=== PATIENT | male | born 1945 | race Caucasian/White ===

== ENCOUNTER 2022-03-21 08:32 | Observation (INO) ==
--- NOTE | 2022-03-09 10:44 | PAT Medication Instructions ---
Medication Instructions Date of Service March 09, 2022 Home Medications escitalopram oxalate 10 mg tablet (Lexapro) 15 mg PO HS rosuvastatin 10 mg tablet (Crestor) 10 mg PO HS Take evening before surgery escitalopram oxalate 10 mg tablet (Lexapro) 15 mg PO HS rosuvastatin 10 mg tablet (Crestor) 10 mg PO HS Other Notes If you have any questions please call us at [phone] or [phone] or [phone] or [phone]
--- NOTE | 2022-03-14 13:43 | Anesthesiology Consultation ---
Date of Service March 14, 2022 Assessment & Plan (1) Encounter for pre-operative examination: Chart Review Chart Review: Acceptable Risk for Surgery and Patient seen in Pre Admission Testing - Pt is NOT an Outpatient Joint candidate Per PAT appt on 03/14/22, patient denies any recent travel or large group activities. Pt is vaccinated for Covid. Will leave to surgeon's discretion if preop Covid testing needed. Educated on importance of using Covid precautions one week prior to surgery Excision right upper back lipoma 06/01/20= Done under [facility] with Grade 1 view with MAC #3. ETT #7.5. (Had scopolamine patch placed) History Surgery Operation Date: 03/21/22 10:40 Proposed Procedures p Left Revision Total Knee Arthroplasty - Boubacar Gaona MD Height/Weight Height: 6 ft 3 in Weight: 123.8 kg Allergies Allergy/AdvReac Type Severity Reaction Status Date / Time No Known Allergies Allergy Mild Verified 03/08/22 14:28 Medications Home Medications Medication Instructions Recorded Confirmed Last Taken escitalopram oxalate 10 mg tablet 15 mg PO HS 03/17/20 03/08/22 06/04/20 (Lexapro) rosuvastatin 10 mg tablet (Crestor) 10 mg PO HS 03/08/22 03/08/22 Unknown Past Medical History Medical History Anxiety COVID-19 virus detected 2020>RESOLVED Hearing deficit Wears hearing aids bilaterally History of basal cell carcinoma S/p excision History of kidney stones No recent issues History of prostate cancer diagnosed 01/2019--s/p prostatectomy History of squamous cell carcinoma S/p excision History of traumatic subdural hematoma (~07/2008) D/t a fall off a ladder--had craniotomy Exercise / Class Metabolic Activity II 4-5 Yardwork/Stairs/Walk up hill (one flight of stairs - no chest pain or SOB ) Past Family History Family History Mother Family hx of colon cancer Colorectal cancer Myocardial infarction Hypertension Grandmother (Maternal) Cancer Father Myocardial infarction Sister Myocardial infarction Grandfather (Paternal) Myocardial infarction Grandmother (Paternal) Myocardial infarction Other Heart disease No family history of adverse response to anesthesia Past Surgical History Surgical History (Updated 03/14/22 @ 16:15 by Anneliese Werner PA-C) H/O melanoma excision Melanoma Left Posterior Neck (Pt denies hx of melanoma- just BCC and SCC) History of appendectomy History of arthroscopy of left knee History of bilateral knee replacement History of colonoscopy with polypectomy History of craniotomy (~09/22/08) @ [facility] right frontoparietal craniotomy, evacuation of chronic subdural hematoma--d/t a fall 07/2008 History of lithotripsy History of prostate biopsy malignant History of prostatectomy 01/2019 History of tooth extraction History of total left knee replacement (TKR) History of total right knee replacement (TKR) Hx of vasectomy Lipoma of back REMOVED Nausea and vomiting after administration of anesthetic agent Past Anesthesia History No Hx of Anesthesia Complications (with exception to PONV with craniotomy - no issues with subsequent surgeries or sedation ) and No Family Hx of Anesthesia Complications History of PONV No Hx of Motion Sickness and History of PONV (one episode with craniotomy ) Social History Smoking Status: Never smoker Do You Dip or Chew Tobacco: No Hx Alcohol Use: Yes Alcohol type: beer alcohol intake frequency: 0-2 drinks per day (1 beer day ) substance use type: does not use Review of Systems Rare reflux Snoring- no witnessed apnea - no hx of sleep study Patient denies chest pain, shortness of breath, dyspnea on exertion, cough, wheezing, palpitations. No hx of seizures, stroke, AR. No hx of blood clots or blood transfusions Physical Exam Vital Signs VITALS BP 125/72 P 66 TEMP 98.4 SP02 98% RESP 16 Constitutional no acute distress ENMT Mouth: no TMJ clicking Thyromental Distance: > or= 3.5 Finger Breadths (3.5) Mallampati Class: II Mouth / Teeth: 1. Missing 2. Missing Partial lower denture Neck neck extension not limited Respiratory normal respiratory effort; no respiratory distress Auscultation: lungs clear to auscultation bilaterally; no wheezes Cardiovascular Rate/Rhythm: regular rate and regular rhythm Heart Sounds: no murmur Vessels: no carotid bruit Musculoskeletal Spine: no pain with cervical ROM Extremities: extremities normal to inspection Psychiatric Orientation: alert Lab Results Anesthesia Preop Results Results Anesthesia Widget: WBC 7.14 K/ul (4.8-10.8) 03/14/22 Hgb 12.5 g/dl (14.0-18.0) L 03/14/22 Hct 36.7 % (40.1-51.0) L 03/14/22 Plt 204 K/uL (130-400) 03/14/22 Na 138 mmol/L (136-145) 03/14/22 K 3.8 mmol/L (3.5-5.1) 03/14/22 Cl 105 mmol/L (98-107) 03/14/22 CO2 26 mmol/L (21-32) 03/14/22 BUN 19 mg/dl (6-23) 03/14/22 Creat 0.83 mg/dl (0.6-1.4) 03/14/22 Glucose Level 108 mg/dl (70-99(Fasting)) H 03/14/22 PT 11.6 Seconds (9.0-12.0) 03/14/22 PTT 27.4 Seconds (21.0-31.0) 03/14/22 INR 1.1 (0.9-1.1) 03/14/22 Blood Type AB Positive 03/14/22 Antibody Screen NEGATIVE 03/14/22 Testing Electrocardiogram Date: 03/14/22 Findings: + NSR @ (60bpm ) Normal EKG per cardio Chest X-Ray Date: 03/14/22 Findings: + NAD FINDINGS: Cardiomediastinal and hilar silhouettes are within normal limits. Mild hyperinflation with diaphragmatic flattening. No pneumothorax, pleural effusion, airspace consolidation or overt pulmonary edema. Degenerative changes of the shoulders and spine. COVID-19 Risk Screen Screening Information COVID-19 Screen Date: 03/14/22 Exposure 21 Days Family/Household +COVID Last 21 Days: No Exposure 10 Days Any COVID Exposure Last 10 Days: No Symptoms Last 10 Days Experienced COVID Sx Last 10 Days: No + COVID 0-90 Days COVID + in Last 0-90 Days: No Risk Plan COVID Risk Plan: No Risk Identified Patient Education COVID Preop Screening Education Complete: Yes
--- NOTE | 2022-03-18 23:54 | History and Physical Report ---
DATE OF ADMISSION: 03/21/2022. CHIEF COMPLAINT: Persistent left knee pain, discomfort, and swelling after a total knee replacement done 10 years ago. 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 He has got a long hi story of knee problems and arthritis and had his left knee replacement by myself back on 02/09/2012. He did pretty well from this, but about a year after surgery, he started having some intermittent sw elling of his knee. We have aspirated his knee on multiple occasions and sent it off and it always s howed an elevated white blood cell count. Unfortunately, it is growing out multiple different bacter ia on several occasions. Back in 01/2013, it grew out some Corynebacterium and Bifidobacterium speci es. We then later had an aspirate, which grew out coag-negative staph and a third aspirate grew out Clostridium. He had a fourth aspirate in 2014, which grew out group beta strep. Despite this, his initial sed rates were all pretty normal, but they have climbed up over time. We actually sent him to [place] to [facility] for evaluation and definitive treatment due to this confusin g picture. He was initially thought to have infection down there as well, but after extensive workup , they deemed he was not infected, went ahead and replaced his right knee. His right knee has done w ell. He is continued to have persistent pain and discomfort in his left knee, which tends to wax and wane. He enjoys playing golf and doing other things and having more difficulty doing this and feels like things have gotten worse. He is looking to have something done. No fevers, just pain and swel ling. PAST MEDICAL HISTORY: Significant for: 1. Prostate cancer, status post surgical treatment. 2. Squamous cell skin cancer. 3. Subdural hematoma. 4. Kidney stones. 5. Basal cell skin cancer. 6. Auditory difficulties. 7. Anxiety. PAST SURGICAL HISTORY: Includes: 1. Left knee arthroscopy. 2. Left knee replacement done on 02/09/2012. 3. Right knee replacement at [facility] in 2016. 4. Colonoscopy. 5. Craniotomy. 6. Lithotripsy. 7. Prior prostate biopsy. 8. Prostatectomy. 9. Oral surgery. 10. Vasectomy. 11. Appendectomy. ALLERGIES: None. CURRENT MEDICATIONS: Include: 1. Lexapro. 2. Multivitamin. SOCIAL HISTORY: A 77-year-old male. He is . 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 [facility] [place] He is retired. One drink per day. Does not smoke. FAMILY HISTORY: No heart disease. REVIEW OF SYSTEMS: Negative for diabetes, neurologic problem, vascular problem, or bleeding disorder s. No history of chest pain. No history of DVT or PE. PHYSICAL EXAMINATION: GENERAL: Reveals a healthy, pleasant middle-aged male. HEENT: Benign. NECK: Supple. No lymphadenopathy. LUNGS: Clear to auscultation. HEART: Regular rate and rhythm. ABDOMEN: Soft, nontender, nondistended. EXTREMITIES: Grossly neurovascularly intact except as follows: Examination of the left knee reveals the patient walks independently. I do not detect any major limp. He does have moderate-sized knee effusion. His range of motion is 0 to 120. There is a little varus valgus laxity. Good straight le g raise. Examination of the right knee reveals a well-healed incision. No swelling. Range of motion is 0 to 120. No instability. X-RAYS: X-rays of the left knee are reviewed. It shows cemented posterior stabilized total knee art hroplasty. There is some lucency around the tibial tray suggestive of loosening. Femoral component l ooks to have a little lucency underneath as well. Bone scan: We did get a bone scan done on 02/24/2022. It showed slight increase intake consistent w ith some synovitis. Possible loosening. LABS: We did get a sed rate of 26 and CRP, just very mildly elevated at 0.98. Most recent knee aspirate revealed 17,000 white cells with 81% polys. They did grow out Propionibact erium acnes at this time. 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 He had an extensive workup both here and at [facility]. Initial thoughts were infection, but they became less con vinced to this. I still think he has got probably some low level infection in there. This is all ba sed on his knee aspirate results primarily and his clinical symptoms and the radiographic findings. PLAN: We talked about treatment options including revision arthroplasty. In his case, it would eith er be a 2 stage or 1 stage exchange. We talked about both these options and obviously, he is not too keen on the 2-stage exchange option. With his low level bacteria, it is a bit difficult, but we do need to treat him with broad-spectrum antibiotics. After extensive discussion, we are going to likel y proceed with a 1 single stage exchange. We will put antibiotics in the cement and probably treat h im for at least 6 months of oral antibiotics postop. If we get in, there is two extensive infection, I will do an antibiotic spacer and then come back and revise his knee at a later date. The risks an d benefits of this procedure were explained to the patient include, but not limited to DVT, PE, , infection, neurological injury, vascular injury and persistent infection. The patient understands and desires to proceed. Informed consent was obtained. As far as discharge plans, he is planning to be discharged to home. We will keep him on broad-spectr um antibiotics, probably some cefadroxil for extended period of time postop. We will use aspirin for DVT prophylaxis. Job ID: [id number]
[~2022-03-21 08:32] MED LIST: ACETAMINOPHEN 500 MG TAB PO SCH; BUPIVACAINE 0.5 % 5 MG/1 ML PF 10ML VIAL ONE; BUPIVACAINE LIPOSOME/PF 266 MG, BUPIVACAINE/EPINEPHRINE 50 ML, SODIUM CHLORIDE 0.9% 30 ... INFIL SCH; CeleBREX 200 MG CAP PO SCH; DAKIN'S SOLN 0.5% FULL STRENGTH 473ML BTL EXT STA; EPINEPHrine INJ 1 MG/ML AMP ONE; FAMOTIDINE 20 MG TAB PO SCH; LR 500ML BOLUS, THEN 15ML/HR IV SCH; LR 60ML/HR IV SCH; METOCLOPRAMIDE HCL 10 MG TABLET PO SCH; ROPIVACAINE 0.5% 5 MG/ML 30 ML VIAL ONE; TRANEXAMIC ACID 1,000 MG **IV Intra-op IV SCH
--- NOTE | 2022-03-21 08:54 | History & Physical Bridge Note ---
Date of Service March 21, 2022 History & Physical Bridge Note I have examined the patient, reviewed the History & Physical and in the interval since the performance of the History & Physical I have noted the following changes of clinical significance: no changes noted
[2022-03-21] MEDS ORDERED: HYDROmorphone INJ 1 MG/ML SYRINGE IV PRN (09:23)
[2022-03-21] MEDS ORDERED: ePHEDrine sulfate 50 MG/ML AMP IV PRN (09:23)
[2022-03-21] MEDS ORDERED: ONDANSETRON INJ 2 MG/ML 2 ML VIAL IV PRN (09:23)
[2022-03-21] MEDS ORDERED: PHENYLEPHRINE 100MCG/ML 5ML SYR IV PRN (09:23)
[2022-03-21] MEDS ORDERED: fentaNYL citrate 100 MCG/2 ML VIAL IV PRN (09:23)
[2022-03-21] MEDS ORDERED: ATROPINE SULFATE 0.1 MG/ML 10ML SYR IV PRN (09:23)
[2022-03-21] MEDS ORDERED: LABETALOL HCL IV 5 MG/ML 20ML IV PRN (09:23)
[2022-03-21] MEDS ORDERED: LIDOCAINE 2% MPF LOCAL 5 ML VIAL INFIL ONE (10:09)
[2022-03-21] MEDS ORDERED: MIDAZOLAM HCL 1 MG/ML 2ML VIAL ONE (10:09)
[2022-03-21] MEDS ORDERED: PROPOFOL IV EMULSION 10 MG/ML 20 ML VIAL IV ONE ×9 (10:09→15:53)
[2022-03-21] MEDS ORDERED: ePHEDrine sulfate 50 MG/ML AMP ONE ×2 (10:14→14:27)
[2022-03-21] MEDS ORDERED: SODIUM CHLORIDE 0.9% INJ 10 ML VIAL ONE (11:11)
[2022-03-21] MEDS ORDERED: VANCOMYCIN HCL 1000MG/20ML VIAL ONE ×2 (11:12→15:31)
[2022-03-21] MEDS ORDERED: TOBRAMYCIN SULF 40 MG/ML 2 ML VIAL ONE (11:12)
[2022-03-21] MEDS ORDERED: BUPIVACAINE/EPINEPHRINE 0.25% 1:200,000 30 ML VIAL ONE (11:12)
[2022-03-21] MEDS ORDERED: SODIUM CHLORIDE 0.9% PF 50 ML VIAL ONE (11:13)
[2022-03-21] MEDS ORDERED: BUPIVACAINE LIPOSOME 1.3% 266 MG/20 ML VIAL ONE (11:13)
[2022-03-21] MEDS ORDERED: TOBRAMYCIN SULFATE VIAL ONE (11:42)
[2022-03-21] MEDS ORDERED: VANCOMYCIN HCL 1 GM/270 ML BAG IV ONE (12:18)
[2022-03-21] MEDS ORDERED: ONDANSETRON INJ 2 MG/ML 2 ML VIAL ONE (13:46)
[2022-03-21] MEDS ORDERED: PHENYLEPHRINE HCL 10 MG/ML VIAL ONE (14:31)
[2022-03-21] MEDS ORDERED: ALBUMIN HUMAN 5% 12.5 GM/250 ML VIAL IV ONE (15:12)
[2022-03-21] MEDS ORDERED: SODIUM CHLORIDE 0.9% 250 ML IV PRN ×2 (15:51→18:25)
[2022-03-21 16:31] LABS: Hematocrit (blood only) 30.8 % (40.1-51.0); Hemoglobin 9.9 g/dl (14.0-18.0)
[2022-03-21] MEDS ORDERED: VANCOMYCIN CONSULT ACTIVE PRN (16:37)
--- NOTE | 2022-03-21 16:39 | Operative Report ---
PG Post Operative Report Pre & Post Diagnosis Operation Date: 03/21/22 10:40 Pre-Op Diagnosis: Painful Left Total Knee Replacement with possible infection versus aseptic Loosening Post-Op Diagnosis: Painful Left Total Knee Replacement with possible infection versus aseptic loosening I identified the patient and participated in the time-out.: Yes Procedure Operation Date: 03/21/22 10:40 Actual Procedures p Left Total Knee Arthroplasty Revision(Left) - Boubacar Gaona MD Surgeon Boubacar Gaona MD [employer] Guero Bermudez PA-C Estimated Blood Loss 1,000 Findings Consistent with Post-Op Diagnosis Operative findings revealed a moderate sized serous effusion. It was not bloody. He did have a moderate amount of osteolysis particular around the tibial tray. None of the components were loose grossly. Moderate synovitis.. Fluids 2200 cc of crystalloid with a 500 cc of colloid Specimens 2 tissue specimen sent for tissue culture. Fluid sent for fluid culture 1 from the knee joint fluid and 2 from the each of the canal was 1 the femoral canal on the tibial canal Frozen section sent for polys per high-power field which revealed the 1 small area of more than 10 polys per high-power field with the remaining less than 5. Drains None Complications none Disposition Accompanied Patient To Recovery: No Indications Patient 77-year-old male retired [employer] (who is now 10 years out from a left knee replacement. He did well for the first year and then the was kind of unhappy with it ever since then feels that intermittent swelling was sent off multiple times for evaluation and analysis for infection. All results were equivocal throughout. I sent him to [place] to have this evaluated for second opinion by the infectious a specialist there. They could not figure it out either. They initially thought it was infected but then later thought not so. They he went ahead and had his right knee replaced down there. He is done well from that. He continues bothered by left knee pain which tended to wax and wane. Moved back to this area and is now elected to proceed with surgical treatment as it bothers him sometimes where he has trouble getting around. Another infectious work-up which was done which was equivocal. Treatment options were explained to the patient. We talked about revision knee replacement versus 1 stage exchange versus two-stage exchange. After extensive discussion we elected proceed with a 1 stage exchange procedure. Description of Procedure Operative implants consist of: 1. Biomet Vanguard size 75 left posterior stabilized femoral component with 5 mm distal medial and distal lateral augments, 5 mm offset stem and a 19 x 80 mm stem. 2. Biomet Vanguard III 60 size 79 tibial tray with a 17 x 80 mm stem with a 2.5 mm offset and a small cruciate wing. 3. 22 mm fully constrained polyethylene insert. The patient was taken the operating, identified, placed on the operating table supine position protectors were properly padded. IV antibiotics tried by anesthesia team The patient did receive 3 g of Ancef preoperatively. A Alvarez catheter was placed in sterile fashion. A spinal anesthetic was implemented holding area. A left thigh tent was then placed in the left lower extremities and prepped and draped in usual sterile fashion. The left leg was elevated exsanguinated with use of an Esmarch in terms playset 3 mmHg. An anterior approach left knee was then performed to longitudinal incision using the previous incision and extending it approximately about 2 cm and distally about a centimeter. Sharp dissection was carried through subcutaneous tissue down the extensor mechanism. A medial parapatellar arthr otomy incision was made. Some fluid was sent off for stat gram stain aerobic anaerobic culture. Gram stains stain showed no organisms. Complete synovectomy of the suprapatellar pouch and medial lateral gutters was then performed. The synovium was sent off for frozen section. For the most part it revealed less than 5 polys per high-power field but there was 1 area where they felt there was more than 10 polys per high-power field. Down otherwise it looked pretty benign. In light of these findings we elected proceed with a 1 stage exchange. That was the plan for initially even with knowledge of possible infection. The polyethylene was removed. I used an ACL saw to loosen up the tibial tray. I was able to remove this after considerable work but it was not loose. We were able to break it free from the underlying cement mantle. We then very carefully debrided the cement. We did a meticulous dissection to get rid of all cement and all foreign debris. Attention drawn the femur. I did place a gauze in the tibial canal to prevent material from going into the tibia. Using the ACL saw the osteotome technique the femoral component was removed. Once again it was not grossly loose. We then proceeded with the tibial preparation. We did get cultures of both the IM canals of the tibia and femur and sent those off for analysis as well. We then reamed the tibia up to a size 80. The intramedullary guide was placed. I then took a pretty generous cut in order to get rid of all cement from the tibia and all possible contaminated debris. Do we then sized the tibia to a size 79. Was prepared for a 2.5 mm offset stem and this implant was assembled and placed. It fit very nicely. Attention drawn the femur. The distal femur was then once again reamed and we did get obtain the cultures. We reamed up to a size 19. The distal femoral cut was made to take an additional couple millimeters off the distal femur. We sized to a size 75. We are concerned about mid flexion instability before so we did not want to use a smaller implant. The AP cutting guide was placed in the anterior cut, anterior chamfer, posterior cut, posterior chamfer cuts were made. The femoral component was assembled and placed. The box cut was cut. The trial implant was assembled in place and fit quite nicely. We then trialed the knee and the extension gap was bigger than the flexion gap so we did place 5 mm augments distally on the femur both medially and laterally. This would seem to balance the knee. It did take a 22 mm insert and I did elect to use a constrained implant. Once this was complete the tourniquet was let down. We spent quite a bit of time meticulously debriding the IM canals. We did ream the IM canals of both the tibia and the femur and then I used a brush to clean the IM canals. We then irrigated it extensively with 3 L of pulsatile lavage solution. I then irrigated the knee with full-strength Dakin's solution and let it sit in the wound for 3 minutes a nd then irrigated this out with another liter and half of fluid. I then irrigated the knee with hydrogen peroxide. We let this sit for 3 minutes and then irrigated this out with a liter and half of a normal saline. I then did a Betadine wash and let the sit in the knee for 5 minutes. We then irrigated this out. Once this was complete and meticulous debridement was performed we took some Hibiclens soaked gauze sponges and placed them in the wound. I then closed the skin with a running Prolene suture. All drapes were then taken down. The wound was Sterile. We then reprepped the leg and redraped it and do not use all new instruments. Attention then turned to placing the implants. The left leg was elevated exsanguinated with use of an Esmarch. The tourniquet was set at at 300 mmHg. The sutures were removed. I open the wound up again. I then irrigated extensively with pulsatile lavage solution. We then did another Betadine wash and left it sit in the knee for 5 minutes. We irrigated this out. A triple batch of Palacos G cement was then mixed with the 3 additional grams of vancomycin. I then placed the femoral component cementing the metaphysis. I placed the tibial component cementing the metaphysis. A trial insert was placed the knee was reduced and held in extension until the cement hardened. I that I did inject locally with 100 cc of combination of 20 cc of Exparel, 30 cc normal saline, 50 cc of quarter percent Marcaine with epinephrine. Of note, before placing the implants in the canals I did place some antibiotic powder in each of the tibial and the femoral canals. We used a total of 1 g of vancomycin and 1.2 g of tobramycin with half of it in each canal. Once the cement hardened the polyethylene was removed and that tourniquet was let down. Oh there was quite a bit of bleeding initially it when the canals were open but much less now that the canals were filled. We did not see any large bleeding of vessels at all but that there was quite a bit of oozing throughout. I then placed the a permanent 22 mm posterior stabilized insert with increased constraint. The knee was taken through range of motion the patella tracked nicely with no thumbs test. It appeared balanced in flexion extension. We irrigated the wound again. I then placed an additional gram of vancomycin in the wound. The extensor mechanism then closed with combination 1 PDS suture #1 Vicryl suture in a [id number] fashion. Extensor mechanism checked found to be intact the subcutaneous tissue then closed with 2 Dexon suture in buried fashion skin was closed skin trina. Leg was then cleaned and dried a sterile dressing was Xeroform, 4 x 4's, sterile cast padding, Alcon bandage were applied. The patient was then transferred to the recovery room in stable condition. Patient tolerated procedure well no complications. All needle sponge counts were correct at the end the operation. Guero Bermudez, my physician perioperative assistant, was present for the entire procedure. His assistance was essential and required for appropriate patient positioning, prepping and draping, surgical exposure, performing the technical details of the operation, placement the implants, closure of the wound, and placement of the sterile bandage. I attest to the content of the Intraoperative Record and any orders documented therein. Any exceptions are noted below.
--- NOTE | 2022-03-21 17:15 | XRay Report ---
XR knee LT 1 or 2V routine CLINICAL HISTORY: Surgical Post Op TECHNIQUE: 2 views of the left knee were obtained. Comparison: Comparison is made to left knee radiographs 02/09/2012 FINDINGS: Postoperative changes are seen of revision of total knee arthroplasty. Surgical trina, subcutaneous emphysema, and soft tissue swelling are seen. No evidence of fracture. IMPRESSION: Expected postoperative appearance status post revision of total knee arthroplasty. ACT 112: Negative or not required by law. Electronically signed by: Trevor Calhoun M.D. 03/21/2022 5:13 PM
[2022-03-21] MEDS ORDERED: ACETAMINOPHEN 1,000 MG/100 ML VIAL IV STA (18:25)
[2022-03-21] MEDS ORDERED: ACETAMINOPHEN 1000 MG/100 ML IV IV ONE (18:32)
--- NOTE | 2022-03-21 18:45 | Anesthesiology Progress Note ---
Date of Service March 21, 2022 Anesthesia Post Procedure Vital Signs Vital Signs: Temp Pulse Pulse Resp BP Pulse Ox O2 Del Method 03/21/22 18:20 81 12 82/59 L 100 Room Air 03/21/22 18:00 79 14 83/53 L 100 Room Air 03/21/22 17:55 76 14 85/55 L 99 Room Air 03/21/22 17:50 83 17 75/54 L 100 Room Air 03/21/22 18:10 79 21 85/56 L 100 Room Air 03/21/22 17:45 76 13 83/61 L 99 Room Air 03/21/22 17:40 79 14 89/64 L 99 Room Air 03/21/22 17:35 79 16 78/55 L 100 Room Air 03/21/22 17:30 84 22 79/55 L 98 Room Air 03/21/22 17:25 83/55 L 03/21/22 17:20 80 15 79/53 L 99 Room Air 03/21/22 17:15 80 16 83/55 L 97 Room Air 03/21/22 17:10 36.4 C L 82 19 79/51 L 100 Room Air 03/21/22 17:05 78 18 81/57 L 100 Nasal Cannula 03/21/22 17:00 80 14 85/58 L 100 Nasal Cannula 03/21/22 16:55 79 18 71/43 L 100 Nasal Cannula 03/21/22 16:50 77 18 83/61 L 100 Oxymask 03/21/22 16:40 86 16 77/50 L 100 Oxymask 03/21/22 16:33 36.3 C L 85 21 85/52 L 100 Oxymask 03/21/22 09:00 36.7 C 59 L 20 122/77 97 Room Air O2 Flow Rate 03/21/22 18:20 03/21/22 18:00 03/21/22 17:55 03/21/22 17:50 03/21/22 18:10 03/21/22 17:45 03/21/22 17:40 03/21/22 17:35 03/21/22 17:30 03/21/22 17:25 03/21/22 17:20 03/21/22 17:15 03/21/22 17:10 03/21/22 17:05 2 03/21/22 17:00 2 03/21/22 16:55 2 03/21/22 16:50 10 03/21/22 16:40 10 03/21/22 16:33 10 03/21/22 09:00 Transfer of Care Handoff Completed per policy Notes Mental Status: alert / awake / arousable Patient Amnestic to Procedure: Yes Nausea / Vomiting: adequately controlled Pain: adequately controlled Airway Patency, RR, SpO2: stable & adequate BP & HR: stable & adequate Hydration State: stable & adequate Neuraxial Anesthesia: was administered and sensory block is resolving Anesthetic Complications: no major complications apparent Notes: blood pressure on low side but stable with mean in low 60's - will give 1 unit prbc's and send to pcu for closer monitoring.
[2022-03-21 18:46] LABS: Basophils # (auto) 0.06 K/uL (0-0.2); Basophils % (auto) 0.4 %; Eosinophils # (auto) 0.03 K/uL (0-0.50); Eosinophils % (auto) 0.2 %; Hematocrit (blood only) 26.9 % (40.1-51.0); Hemoglobin 8.9 g/dl (14.0-18.0); Immature Granulocytes # (auto) 0.08 K/uL (0.00-0.02); Immature Granulocytes % (auto) 0.5 %; Lymphocytes % (auto) 4.3 %; Mean Corpuscular Hgb Conc 33.1 g/dL (32.0-36.0); Mean Corpuscular Volume 93.7 fL (80.0-100.0); Mean Platelet Volume 8.8 fL (9.4-12.4); Monocytes # (auto) 0.78 K/uL (0.24-0.82); Monocytes % (auto) 4.8 %; Neutrophils # (auto) 14.61 K/uL (1.4-6.5); Neutrophils % (auto) 89.8 %; Platelet Count 167 K/uL (130-400); RDW Coefficient of Variation 13.2 % (11.5-14.5); RDW Standard Deviation 45.9 fL (36.4-46.3); Red Blood Count 2.87 M/uL (4.63-6.08); White Blood Count 16.26 K/ul (4.8-10.8)
--- NOTE | 2022-03-21 18:46 | Hospitalist Consultation ---
Date of Consultation March 21, 2022 Assessment & Plan (1) Postoperative hypotension: Neymar is a 77-year-old male with a past medical history of osteoarthritis, right TKA, left TKA, craniotomy for subdural hematoma without residual neurologic deficit, lipoma excision who presented for scheduled left TKA revision. He experienced interoperative and postoperative hypotension, medicine has been consulted for postoperative management of hypertension. On review patient had 1 L of blood loss, has received 3 L of LR, and had a H&H decreased from 12.5 preop to 9.9. Maps generally ranging 5565. Was transiently on Benjamin-Synephrine intraoperatively. Patient received TXA. Postoperative hypotension Suspect hypovolemicw/ blood/colloid loss - s/p TXA Presented for scheduled left TKA revision Preoperative hemoglobin 12.5, postop check 9.9 Patient with 1 L reported blood loss intraoperatively At time of assessment had received 3 L LR 1 unit of blood ordered for transfusion. 1 unit on hold MAP 65 on assessment. Goal MAP greater >= 65 Left lower extremity neurovascularly intact on assessment; radial pulse intact, warm and well-perfused, cap refill less than 2 seconds, able to wiggle toes Patient without chest pain, chest pressure, shortness of breath, lightheadedness, dizziness Repeat EKG obtained. Sinus rhythm, QTC 446, no territorial ST segment changes. 1x PVC, low amplitute t waves similar to prior. No prior cardiac disease, no history of [place]/CAD. No chest pain on assessment. Tylenol x1 ordered for pretransfusion LR continued 80 cc/h Updated CBC, lactate, Trope, CMP pending - Cr pending, preop Cr 0.83 Anxiety/depression May resume Lexapro tomorrow Hyperlipidemia May resume Crestor tomorrow DVT prophylaxis: Per primary team. Pharmacal prophylaxis deferred in the immediate postoperative setting and with anemia CODE STATUS: Full code Disposition: Transferred to PCU. ICU aware, if not improving following blood transfusion may require admission for pressors (2) Prostate cancer: (3) History of bilateral knee replacement: (4) Lipoma of back: (5) Anxiety: History of Present Illness Attending Physician: Boubacar Gaona MD History of Present Illness Neymar is a 77-year-old male with a past medical history of osteoarthritis, right TKA, left TKA, craniotomy for subdural hematoma without residual neurologic deficit, lipoma excision who presented for scheduled left TKA revision. He experienced interoperative and postoperative hypotension, medicine has been consulted for postoperative management of hypertension. On review patient had 1 L of blood loss, has received 3 L of LR, and had a H&H decreased from 12.5 preop to 9.9. Maps generally ranging 5565. Was transiently on Benjamin-Synephrine intraoperatively. Patient received TXA. He is not on any aspirin, or aspirin like medications and does not take any anticoagulants. Other than his subdural hematoma he reports he has not had any problems with bleeding including no sebleeds or prolonged wound healing in the past. He reported he has tolerated a right total knee, left total knee 11 years ago, and prostate removal without any complications of anesthesia or hypotension. He reports his blood pressure does tend to run in the low 1 teens to low 100s at baseline. At time of bedside visit he does not feel lightheaded or dizzy, has no chest pain, chest pressure, shortness of breath, difficulty breathing, nausea, vomiting. Sensation is intact in his toes bilaterally and he is able to wiggle his feet. He is not have any numbness/tingling. He denies pain in the left knee. He reports his only medications are rosuvastatin and Lexapro. Patient is listed as taking aspirin twice daily on [employer] [facility], patient reports he does not take aspirin. Reports he has 1 beer daily, never more than 1 beer and does not drink or liquor. No tobacco use. No recreational substance use including marijuana. Full code. Allergies Allergy/AdvReac Type Severity Reaction Status Date / Time No Known Allergies Allergy Mild Verified 03/21/22 08:46 Home Medications Medication Instructions Recorded Confirmed Type escitalopram oxalate 10 mg tablet 15 mg PO HS 03/17/20 03/21/22 History (Lexapro) rosuvastatin 10 mg tablet (Crestor) 10 mg PO HS 03/08/22 03/21/22 History acetaminophen 500 mg capsule 1,000 mg PO TID Pain 30 days #180 03/19/22 03/21/22 Rx caps aspirin 81 mg tablet,delayed 81 mg PO BID 45 days #90 tabs 03/19/22 03/21/22 Rx release (Phuc Low Dose Aspirin) ketorolac 10 mg tablet 10 mg PO Q6 Pain 5 days #20 tabs 03/19/22 03/21/22 Rx ondansetron HCl 4 mg tablet 4 mg PO Q6 PRN nausea #20 tabs 03/19/22 03/21/22 Rx oxycodone 5 mg tablet 5 - 10 mg PO Q6 PRN pain #40 tabs 03/19/22 03/21/22 Rx sennosides 8.6 mg-docusate sodium 1 tab-cap PO BID 14 days #28 tabs 03/19/22 03/21/22 Rx 50 mg tablet (Senokot-S) Patient History Medical History (Updated 03/21/22 @ 18:38 by Aaron Carranza MD) Anemia Anxiety COVID-19 virus detected 2020>RESOLVED Hearing deficit Wears hearing aids bilaterally History of basal cell carcinoma S/p excision History of kidney stones No recent issues History of prostate cancer diagnosed 01/2019--s/p prostatectomy History of squamous cell carcinoma S/p excision History of traumatic subdural hematoma (~07/2008) D/t a fall off a ladder--had craniotomy Obesity Surgical History H/O melanoma excision Melanoma Left Posterior Neck (Pt denies hx of melanoma- just BCC and SCC) History of appendectomy History of arthroscopy of left knee History of bilateral knee replacement History of colonoscopy with polypectomy History of craniotomy (~09/22/08) @ [facility] right frontoparietal craniotomy, evacuation of chronic subdural hematoma--d/t a fall 07/2008 History of lithotripsy History of prostate biopsy malignant History of prostatectomy 01/2019 History of tooth extraction History of total left knee replacement (TKR) History of total right knee replacement (TKR) Hx of vasectomy Lipoma of back REMOVED Nausea and vomiting after administration of anesthetic agent Family History Mother Family hx of colon cancer Colorectal cancer Myocardial infarction Hypertension Grandmother (Maternal) Cancer Father Myocardial infarction Sister Myocardial infarction Grandfather (Paternal) Myocardial infarction Grandmother (Paternal) Myocardial infarction Other Heart disease No family history of adverse response to anesthesia Social History Smoking Status: Never smoker Second Hand Exposure: Yes (parents smoked); Do You Dip or Chew Tobacco: No; Hx Alcohol Use: Yes Alcohol type: beer Alcohol Intake Frequency: 2-3 x/Week Preferred Language: Thai Communication Ability: Effective General Assistant Required: No Beliefs That Will Affect Care: None Current Living Situation: Spouse Feels Safe at Home: Yes Safety Concerns: Feels Safe At This Time Sunscreen Use: Yes Assistive Devices: Denture - Lower, Glasses and Hearing Aid - Bilateral Review of Systems Review of Systems: All systems reviewed & are unremarkable except as noted in HPI & below Physical Exam Physical Exam: General: A&Ox3. NAD. Cooperative. HEENT: Atraumatic, normocephalic. Vision/hearing grossly intact Pulm: Symmetrical chest rise. No increased work of breathing. No respiratory distress. Cardiac: RRR Radial pulses intact and symmetrical. Abdominal: NT, ND Sensation is intact in his toes bilaterally and he is able to wiggle his feet. He is not have any numbness/tingling. PT pulse is intact in the left foot. Postoperative dressing and wrap is in place. Moves upper extremities equally with symmetrical boot trimmer strength Results & Data Results & Data ([facility]) Vital Signs (Past 12 Hours) Vital Signs Temp Pulse Pulse Resp BP Pulse Ox O2 Del Method 03/21/22 18:20 81 12 82/59 L 100 Room Air 03/21/22 18:00 79 14 83/53 L 100 Room Air 03/21/22 17:55 76 14 85/55 L 99 Room Air 03/21/22 17:50 83 17 75/54 L 100 Room Air 03/21/22 18:10 79 21 85/56 L 100 Room Air 03/21/22 17:45 76 13 83/61 L 99 Room Air 03/21/22 17:40 79 14 89/64 L 99 Room Air 03/21/22 17:35 79 16 78/55 L 100 Room Air 03/21/22 17:30 84 22 79/55 L 98 Room Air 03/21/22 17:25 83/55 L 03/21/22 17:20 80 15 79/53 L 99 Room Air 03/21/22 17:15 80 16 83/55 L 97 Room Air 03/21/22 17:10 36.4 C L 82 19 79/51 L 100 Room Air 03/21/22 17:05 78 18 81/57 L 100 Nasal Cannula 01/24/23 17:00 80 14 85/58 L 100 Nasal Cannula 03/21/22 16:55 79 18 71/43 L 100 Nasal Cannula 03/21/22 16:50 77 18 83/61 L 100 Oxymask 03/21/22 16:40 86 16 77/50 L 100 Oxymask 03/21/22 16:33 36.3 C L 85 21 85/52 L 100 Oxymask 03/21/22 09:00 36.7 C 59 L 20 122/77 97 Room Air O2 Flow Rate 03/21/22 18:20 03/21/22 18:00 03/21/22 17:55 03/21/22 17:50 03/21/22 18:10 03/21/22 17:45 03/21/22 17:40 03/21/22 17:35 03/21/22 17:30 03/21/22 17:25 03/21/22 17:20 03/21/22 17:15 03/21/22 17:10 03/21/22 17:05 2 03/21/22 17:00 2 03/21/22 16:55 2 03/21/22 16:50 10 03/21/22 16:40 10 03/21/22 16:33 10 03/21/22 09:00 PG Care Time/CCT Total # of Minutes Spent Total Time Spent with Patient: Total time spent is greater than 50% in coordination of care (as documented) at patient's floor/unit and/or counseling patient: Coding Level of Care Code INP/OBS CONSULT LVL 4, 60 MIN Diagnoses Postoperative hypotension I95.81 Prostate cancer C61 History of bilateral knee replacement Z96.653 Lipoma of back D17.1 Anxiety F41.9
[2022-03-21] MEDS ORDERED: STAT IV Infusion **Titration per Protocol STA (19:56)
[2022-03-21] MEDS ORDERED: PHENYLEPHRINE 100MCG/ML 5ML SYR ONE (19:58)
[2022-03-21] MEDS ORDERED: bisacodyL 10 MG SUPP PR PRN (20:11)
[2022-03-21] MEDS ORDERED: NALOXONE HCL 0.4 MG/1 ML VIAL/CARP IV PRN (20:11)
[2022-03-21] MEDS ORDERED: TAMSULOSIN HCL 0.4 MG CAP PO PRN (20:11)
[2022-03-21] MEDS ORDERED: ALUMINUM/MAGNESIUM SUSP 30 ML UDC PO PRN (20:11)
[2022-03-21] MEDS ORDERED: MAGNESIUM HYDROXIDE SUSP 30 ML UDC PO PRN (20:11)
[2022-03-21] MEDS ORDERED: SODIUM CHLORIDE 0.9% 1000ML 1,000 ML IV SCH (20:11)
[2022-03-21] MEDS ORDERED: METOCLOPRAMIDE HCL INJ 5 MG/ML 2 ML VIAL IV PRN (20:11)
[2022-03-21] MEDS ORDERED: HYDROmorphone INJ 0.5 MG/0.5 ML SYR IV PRN (20:11)
[2022-03-21] MEDS: PHENYLEPHRINE HCL 20 MG in DEXTROSE 5% 500 ML IV SCH (20:32)
[2022-03-21 20:33] LABS: Base Excess VBG -4.8 mEq/L; HCO3 VBG 22 mmol/L; Oxygen Saturation VBG < 60.0 %; PCO2 VBG 47 mmHg (38-50); PO2 VBG 21 mmHg; pH VBG 7.28 (7.36-7.41)
--- NOTE | 2022-03-21 20:37 | Critical Care Consultation ---
Date of Consultation March 21, 2022 Assessment & Plan (1) Postoperative hypotension: (2) Anemia: (3) Anxiety: (4) HLD (hyperlipidemia): Plan Reason Critically Ill: 77 YOM POD #0 from left TKA revision secondary to painful joint with possible infection versus aseptic loosening. Patient remained hypotensive in PACU following operative case. EBL 1000ml- resuscitated introperatively with 2liters crystalloid and 500ml of albumin. Required phenylephedrine infusion and ephedrine boluses (50mg) through the case. Patient was initiated with PRBC transfusion by hospitalist service and as he remained hypotension was transferred to ICU. Start patient on Neosynepherine at this time. May require arterial line. Remains on Vancomycin postoperatively- GM stain from case without organisms noted but noted WBC. Neuro: Acute pain postoperative/surigical CAM ICU: NEGATIVE Awake and alert following anesthesia No acute needs Continue with Tylenol, Oxycodone, and Hydromorphone- rescue Narcan is available Cardiac - Hypotension, Shock - Undifferentiated shock at this time noted with hypotension requiring vasopressor support, elevated lactate - DDX: - acute blood loss/hypovolemic, septic, vs. other - he is not hypoxic so doubt obstructive, most likely at this time hypovolemic - Continue with PRBC infusion - NEOsynepherine infusion to keep MAPS >65 - Re-check lactate, CBC, BMP, Ionized CA and random cortisol - Hold toradol - Hold flomax - TXA ordered per primary service Respiratory - NO acute needs GI - No acute needs PPI RENAL/LYTES - electrolyte protocol - check iCA - replete calcium - BPH - Continue with Puckett catheter while on pressors - Hold Flomax until Hypotension resolved ENDO - NO acute needs - hyperglycemic protocol goal <180mg/dl - Random Cortisol pending HEME - Acute on chronic anemia - At this time most consistent with acute blood loss anemia/hypotension - Transfuse - TXA per primary service ID - Patient with history of swelling in the knees with elevated WBC and with and without previous bacteria- Continue with Vancomycin- low threshold to broaden out coverage afebrile- follow lactate, organ dysfunction and pressor requirements wound cultures from today with WBC and no organisms LINES/IV ACCESS - PIV, Puckett Continue use of these lines DVT PROPHYLAXIS -SCDS, ASA 81mg BID DISPO - ICU while on vasopressors I have personally spent 45 minutes of critical care time in the direct management of this patient. This is a life/limb threatening event. This includes time spent evaluating patient, direct bedside care, chart review, placing orders, interpretation of diagnostic studies, discussion with consultants, patient, and family members, as well as other required patient management activities. This time is exclusive of all separately billable procedures, and separate from and in addition to any other critical care service time. Thank you for allowing us to participate in the care of this patient. Please refer to my attending physician's documentation for any further recommendations. History of Present Illness Reason for Consultation: postoperative hypotension Requesting Physician: postoperative hypotension Attending Physician: Boubacar Gaona MD History of Present Illness 77 YOM who is postoperative day #0 from left TKA for osteoarthritis. Medical History of Anxiety, subdural bleed with craniotomy (2008), prostate cancer. He has undergone anesthesia and operations prior to today with no endorsed difficulties. Patient operative report and anesthesia records reviewed. Patient with EBL reported as 1000 ml. Received approx 2000 of crystalloid and 500 ml of colloid in the form of albumin during the case as well as requiring phenylephrine drip and ephedrine boluses (50mg) during the case. Patient remained hypotensive in the PACU and hospitalist was consulted. Patient was administered 1 unit of PRBCs with postoperative HGB 8.9 and lactate 2.3, with remaining hypotension in the 70s/40s. ICU was consulted for hypotension. Patient will be followed in ICU for continued resuscitation, eval for other causes of hypotension and start patient on Neosynpeherine infusion at this time to maintain MAPS >65. He is evaluated in his room in the ICU. Patient is awake, conversant, HR 70-80s with Occasional PVCs, mentating and communicating well. His skin is warm and dry, peripheral pulses are strong. Left leg is wrapped with JEREMIAH wrap, TEDS, and ICE. The leg is soft and peripheral edema noted but leg is warm with palpable pulses as well. Patient is Full CODE COVID test pre-operative is: NEGATIVE Allergies Allergy/AdvReac Type Severity Reaction Status Date / Time No Known Allergies Allergy Mild Verified 03/21/22 08:46 Home Medications Medication Instructions Recorded Confirmed Type escitalopram oxalate 10 mg tablet 15 mg PO HS 03/17/20 03/21/22 History (Lexapro) rosuvastatin 10 mg tablet (Crestor) 10 mg PO HS 03/08/22 03/21/22 History acetaminophen 500 mg capsule 1,000 mg PO TID Pain 30 days #180 03/19/22 03/21/22 Rx caps aspirin 81 mg tablet,delayed 81 mg PO BID 45 days #90 tabs 03/19/22 03/21/22 Rx release (Phuc Low Dose Aspirin) ketorolac 10 mg tablet 10 mg PO Q6 Pain 5 days #20 tabs 03/19/22 03/21/22 Rx ondansetron HCl 4 mg tablet 4 mg PO Q6 PRN nausea #20 tabs 03/19/22 03/21/22 Rx oxycodone 5 mg tablet 5 - 10 mg PO Q6 PRN pain #40 tabs 03/19/22 03/21/22 Rx sennosides 8.6 mg-docusate sodium 1 tab-cap PO BID 14 days #28 tabs 03/19/22 03/21/22 Rx 50 mg tablet (Senokot-S) Patient History Medical History Anemia Anxiety COVID-19 virus detected 2020>RESOLVED Hearing deficit Wears hearing aids bilaterally History of basal cell carcinoma S/p excision History of kidney stones No recent issues History of prostate cancer diagnosed 01/2019--s/p prostatectomy History of squamous cell carcinoma S/p excision History of traumatic subdural hematoma (~07/2008) D/t a fall off a ladder--had craniotomy Obesity Surgical History H/O melanoma excision Melanoma Left Posterior Neck (Pt denies hx of melanoma- just BCC and SCC) History of appendectomy History of arthroscopy of left knee History of bilateral knee replacement History of colonoscopy with polypectomy History of craniotomy (~09/22/08) @ [facility] right frontoparietal craniotomy, evacuation of chronic subdural hematoma--d/t a fall 07/2008 History of lithotripsy History of prostate biopsy malignant History of prostatectomy 01/2019 History of tooth extraction History of total left knee replacement (TKR) History of total right knee replacement (TKR) Hx of vasectomy Lipoma of back REMOVED Nausea and vomiting after administration of anesthetic agent Family History Mother Family hx of colon cancer Colorectal cancer Myocardial infarction Hypertension Grandmother (Maternal) Cancer Father Myocardial infarction Sister Myocardial infarction Grandfather (Paternal) Myocardial infarction Grandmother (Paternal) Myocardial infarction Other Heart disease No family history of adverse response to anesthesia Social History Smoking Status: Never smoker Second Hand Exposure: Yes; Do You Dip or Chew Tobacco: No; Hx Alcohol Use: Yes Alcohol type: beer Alcohol Intake Frequency: 2-3 x/Week Hx Substance Use: No Preferred Language: Romanian 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: No Beliefs That Will Affect Care: None Current Living Situation: Spouse Feels Safe at Home: Yes Safety Concerns: Feels Safe At This Time Sunscreen Use: Yes Assistive Devices: Denture - Lower, Glasses and Hearing Aid - Bilateral Review of Systems Review of Systems: REVIEW OF SYSTEMS: Constitutional: No fever, sweats or chills Eyes: No diplopia, no worsening or blurred vision ENT: normal hearing, no trouble swallowing Respiratory: No cough, sputum, dyspnea at rest or on exertion Cardiovascular: No chest pain, tightness or palpitations Abdomen: No pain, nausea, vomiting, diarrhea or constipation Musculoskeletal: (+) bilateral knee joint pain, lower leg swelling Neurologic: No weakness, numbness/tingling, or balance problems Psychiatric: No anxiety or depression Skin: No rash or itch Physical Exam Physical Exam: PHYSICAL EXAM: General: awake, alert, no apparent distress Head: Normocephalic, atraumatic ENT: PERRLA, EOMI, no pharyngeal exudate, mucous membranes dry Neuro: AAO x 3, speech clear and appropriate, strength intact bilaterally 5/5, sensation intact and equal all extremities and dermatomes, no pronator drift Chest: equal rise and fall of the chest, no accessory muscle use, no heaves or thrills, Clear to auscultation, on room air, Cardiac: Regular rate and rhythm, telemetry reviewed- NSR with PVC, skin warm dry, cap refill <3 seconds, peripheral pulses +2 no JVD, no murmur, +1 bilateral lower extremity edema GI: NABS x 4 quadrants, soft, nontender to palpation, no rebound, guarding or tenderness : voiding into puckett catheter MSK: Left knee wrapped and with ice= leg is soft throughout, no drain, peripher al pulses 2+, sensation improving following local Psych: Normal mood and affect Skin: no rash or erythema Results & Data Results & Data ([facility]) Vital Signs (Past 12 Hours) Vital Signs Temp Pulse Pulse Pulse Resp BP BP 03/21/22 19:44 36.6 C 81 12 83/47 L 03/21/22 19:20 36.3 C L 77 16 84/58 L 03/21/22 19:15 36.3 C L 80 20 84/59 L 03/21/22 19:00 36.5 C 79 13 79/55 L 03/21/22 18:45 36.5 C 76 13 86/69 L 03/21/22 18:50 77 13 86/59 L 03/21/22 18:20 81 12 82/59 L 03/21/22 18:00 79 14 83/53 L 03/21/22 17:55 76 14 85/55 L 03/21/22 17:50 83 17 75/54 L 03/21/22 18:10 79 21 85/56 L 03/21/22 17:45 76 13 83/61 L 03/21/22 17:40 79 14 89/64 L 03/21/22 17:35 79 16 78/55 L 03/21/22 17:30 84 22 79/55 L 03/21/22 17:25 83/55 L 03/21/22 17:20 80 15 79/53 L 03/21/22 17:15 80 16 83/55 L 03/21/22 17:10 36.4 C L 82 19 79/51 L 03/21/22 17:05 78 18 81/57 L 03/21/22 17:00 80 14 85/58 L 03/21/22 16:55 79 18 71/43 L 03/21/22 16:50 77 18 83/61 L 03/21/22 16:40 86 16 77/50 L 03/21/22 16:33 36.3 C L 85 21 85/52 L 03/21/22 09:00 36.7 C 59 L 20 122/77 Pulse Ox O2 Del Method O2 Flow Rate 03/21/22 19:44 100 Room Air 03/21/22 19:20 100 Room Air 03/21/22 19:15 100 03/21/22 19:00 100 03/21/22 18:45 100 03/21/22 18:50 99 Room Air 03/21/22 18:20 100 Room Air 03/21/22 18:00 100 Room Air 03/21/22 17:55 99 Room Air 03/21/22 17:50 100 Room Air 03/21/22 18:10 100 Room Air 03/21/22 17:45 99 Room Air 03/21/22 17:40 99 Room Air 03/21/22 17:35 100 Room Air 03/21/22 17:30 98 Room Air 03/21/22 17:25 03/21/22 17:20 99 Room Air 03/21/22 17:15 97 Room Air 03/21/22 17:10 100 Room Air 03/21/22 17:05 100 Nasal Cannula 2 03/21/22 17:00 100 Nasal Cannula 2 03/21/22 16:55 100 Nasal Cannula 2 03/21/22 16:50 100 Oxymask 10 03/21/22 16:40 100 Oxymask 10 03/21/22 16:33 100 Oxymask 10 03/21/22 09:00 97 Room Air Laboratory Results Abnormal lab results 03/21/22 03/21/22 03/21/22 Range/Units 08:48 16:09 18:20 WBC (4.8-10.8) K/ul RBC (4.63-6.08) M/uL Hgb 9.9 L (14.0-18.0) g/dl Hct 30.8 L (40.1-51.0) % MPV (9.4-12.4) fL Neut # (Auto) (1.4-6.5) K/uL Lymph # (Auto) (1.2-3.4) K/uL Immature Gran # (Auto) (0.00-0.02) K/uL Lactate 2.3 H* (0.4-2.0) mmol/L Crossmatch See Detail 03/21/22 Range/Units 18:20 WBC 16.26 H (4.8-10.8) K/ul RBC 2.87 L (4.63-6.08) M/uL Hgb 8.9 L (14.0-18.0) g/dl Hct 26.9 L (40.1-51.0) % MPV 8.8 L (9.4-12.4) fL Neut # (Auto) 14.61 H (1.4-6.5) K/uL Lymph # (Auto) 0.70 L (1.2-3.4) K/uL Immature Gran # (Auto) 0.08 H (0.00-0.02) K/uL Lactate (0.4-2.0) mmol/L Crossmatch Diagnostic Findings Knee X-Ray 03/21/22 16:35 XR knee LT 1 or 2V routine CLINICAL HISTORY: Surgical Post Op TECHNIQUE: 2 views of the left knee were obtained. Comparison: Comparison is made to left knee radiographs 02/09/2012 FINDINGS: Postoperative changes are seen of revision of total knee arthroplasty. Surgical trina, subcutaneous emphysema, and soft tissue swelling are seen. No evidence of fracture. IMPRESSION: Expected postoperative appearance status post revision of total knee arthroplast y. ACT 112: Negative or not required by law. Electronically signed by: Trevor Calhoun M.D. 03/21/2022 5:13 PM Medications Administered Home Medications escitalopram oxalate 10 mg tablet (Lexapro) 15 mg PO HS 03/17/20 [History Confirmed 03/21/22] rosuvastatin 10 mg tablet (Crestor) 10 mg PO HS 03/08/22 [History Confirmed 03/21/22] acetaminophen 500 mg capsule 1,000 mg PO TID Pain 30 days #180 caps 03/19/22 [Rx Confirmed 03/21/22] aspirin 81 mg tablet,delayed release (Phuc Low Dose Aspirin) 81 mg PO BID 45 days #90 tabs 03/19/22 [Rx Confirmed 03/21/22] ketorolac 10 mg tablet 10 mg PO Q6 Pain 5 days #20 tabs 03/19/22 [Rx Confirmed 03/21/22] ondansetron HCl 4 mg tablet 4 mg PO Q6 PRN nausea #20 tabs 03/19/22 [Rx Confirmed 03/21/22] oxycodone 5 mg tablet 5 - 10 mg PO Q6 PRN pain #40 tabs 03/19/22 [Rx Confirmed 03/21/22] sennosides 8.6 mg-docusate sodium 50 mg tablet (Senokot-S) 1 tab-cap PO BID 14 days #28 tabs 03/19/22 [Rx Confirmed 03/21/22] Active Medications Acetaminophen (Acetaminophen 500 Mg Tab) 1,000 mg PO Q8 [facility] Stop: 04/20/22 21:59 Al Hydrox/Mg Hydrox/Simethicone (Aluminum/Magnesium Susp 30 Ml Udc) 15 ml PO Q4H PRN PRN Reason: Heartburn Stop: 04/20/22 20:10 Ascorbic Acid (Ascorbic Acid 500 Mg Tab) 500 mg PO BIDM TIFFANIE Stop: 04/20/22 20:10 Aspirin (Aspirin 81 Mg Ectab) 81 mg PO BID TIFFANIE Stop: 04/20/22 20:59 Bisacodyl (Bisacodyl 10 Mg Supp) 10 mg [place] DAILY PRN PRN Reason: Constipation Stop: 04/20/22 20:10 Docusate Sodium (Docusate Sodium 100 Mg Cap) 100 mg PO BID TIFFANIE Stop: 04/20/22 20:59 Escitalopram Oxalate (Escitalopram Oxalate 10 Mg Tab) 15 mg PO HS TIFFANIE Stop: 04/20/22 20:59 Hydromorphone HCl (Hydromorphone Inj 0.5 Mg/0.5 Ml Syr) 0.5 mg IV Q4H PRN PRN Reason: Pain or Pre PT Stop: 04/04/22 20:10 Lactated Ringer's (Lr) 1,000 mls @ 60 mls/hr IV .[id number] [facility] Stop: 03/21/22 22:39 Last Admin: 03/21/22 09:17 Dose: Not Given Sodium Chloride (Nss) 250 mls @ 15 mls/hr IV .[id number] PRN PRN Reason: For Transfusion Duration Stop: 03/22/22 01:52 Cefazolin Sodium (Ancef 2000mg) 2,000 mg in 15 mls @ 3.75 mls/min IV Q8H [facility] Stop: 05/02/22 16:44 Vancomycin HCl 1,750 mg/ (Sodium Chloride) 535 mls @ 200 mls/hr IV Q12 TIFFANIE Stop: 05/02/22 20:59 Sodium Chloride (Nss) 250 mls @ 15 mls/hr IV .[id number] PRN PRN Reason: For Transfusion Duration Stop: 03/22/22 04:25 Phenylephrine HCl 20 mg/ (Dextrose) 502 mls @ 91.113 mls/hr IV .[id number] [facility]; Protocol Stop: 04/20/22 19:59 Sodium Chloride (Nss 1000ml) 1,000 mls @ 100 mls/hr IV .Q10H [facility] Stop: 03/22/22 06:00 Dexamethasone 10 mg/ Syringe 2.5 mls @ 1 mls/min IV TODAY@08 [facility] Stop: 03/22/22 08:03 Tranexamic Acid (Tranexamic Acid / 0.7% Nacl) 1,000 mg in 100 mls @ 600 mls/hr IV Q6H [facility] Stop: 03/21/22 22:39 Ketorolac Tromethamine (Ketorolac Tromethamine 15 Mg/Ml Vial) 15 mg IV Q6H [facility] Stop: 03/23/22 14:12 Magnesium Hydroxide (Magnesium Hydroxide Susp 30 Ml Udc) 30 ml PO Q6H PRN PRN Reason: Constipation Stop: 04/20/22 20:10 Metoclopramide HCl (Metoclopramide Hcl Inj 5 Mg/Ml 2 Ml Vial) 10 mg IV Q6H PRN PRN Reason: Nausea And Vomiting Stop: 04/20/22 20:10 Miscellaneous (Stat Iv Infusion Titration Per Protocol) 1 each N/A NOW STA Stop: 03/21/22 19:57 Miscellaneous Information (Vancomycin Consult Active) 1 each N/A UD PRN PRN Reason: Consult Stop: 04/20/22 16:36 Multivitamins (Multivitamin Tab) 1 tab PO QAM [facility] Stop: 04/21/22 08:59 Naloxone HCl (Naloxone Hcl 0.4 Mg/1 Ml Vial/Carp) 0.1 mg IV Q5M PRN PRN Reason: Oversedation/Resp Depression Stop: 04/20/22 20:10 Non-Formulary Medication (Acetaminophen) 1,000 mg PO TID [facility] Stop: 04/20/22 20:59 Ondansetron HCl (Ondansetron Inj 2 Mg/Ml 2 Ml Vial) 4 mg IV Q6H PRN PRN Reason: Nausea And Vomiting Stop: 04/20/22 20:10 Oxycodone HCl (Oxycodone Hcl Ir 5 Mg Tab (Immediate Release)) 5 - 10 mg PO Q6 PRN PRN Reason: pain Stop: 04/04/22 20:10 Rosuvastatin Calcium (Rosuvastatin Calcium 10 Mg Tab) 10 mg PO HS TIFFANIE Stop: 04/20/22 20:59 Senna/Docusate Sodium (Docusate Sodium/Senna 50/8.6mg Tab) 1 tab PO BID TIFFANIE Stop: 04/20/22 20:59 Sennosides (Senna 8.6 Mg Tab) 17.2 mg PO HS TIFFANIE Stop: 04/20/22 20:59 Tamsulosin HCl (Tamsulosin Hcl 0.4 Mg Cap) 0.4 mg PO QAM PRN PRN Reason: UNABLE to void Stop: 04/20/22 20:10 ECG Additional Comments: Sinus rhythm with occasional Premature ventricular complexes Nonspecific T wave abnormality Abnormal ECG When compared with ECG of 14-MAR-2022 14:02, Premature ventricular complexes are now Present Nonspecific T wave abnormality, worse in Inferior leads Coding Level of Care Code Critical Care 1st 30-74 mins Diagnoses Postoperative hypotension I95.81 Anemia D64.9 Anxiety F41.9 HLD (hyperlipidemia) E78.5
[2022-03-21] MEDS ORDERED: DOCUSATE SODIUM/SENNA 50/8.6MG TAB PO SCH (21:00)
[2022-03-21] MEDS ORDERED: VANCOMYCIN HCL 1,750 MG in SODIUM CHLORIDE 0.9% 500 ML IV SCH (21:00)
[2022-03-21] MEDS ORDERED: KETOROLAC TROMETHAMINE 15 MG/ML VIAL IV SCH (21:00)
[2022-03-21 21:10] LABS: BUN Creatinine Ratio 21.1 (10-20); Calcium 7.9 mg/dl (8.5-10.1); Creatinine Clr Calc Pharmacy 99.4 ml/min; Est GFR (African American) 96.5 ml/min; Est GFR (Non-African American) 83.3 ml/min; Potassium 4.8 mmol/L (3.5-5.1)
[2022-03-21] MEDS: DOCUSATE SODIUM 100 MG CAP PO SCH (21:10)
[2022-03-21] MEDS: ceFAZolin 2000MG 2,000 MG/15 ML SYR IV SCH (21:11)
[2022-03-21] MEDS: ASPIRIN 81 MG ECTAB PO SCH (21:11)
[2022-03-21] MEDS: ROSUVASTATIN CALCIUM 10 MG TAB PO SCH (21:12)
[2022-03-21] MEDS: ESCITALOPRAM OXALATE 10 MG TAB PO SCH (21:12)
[2022-03-21] MEDS: SENNA 8.6 MG TAB PO SCH (21:12)
[2022-03-21] MEDS: ASCORBIC ACID 500 MG TAB PO SCH (21:13)
[2022-03-21] MEDS: ACETAMINOPHEN 500 MG TAB PO SCH (21:13)
[2022-03-21] MEDS ORDERED: STAT IV STA (21:21)
[2022-03-21] MEDS ORDERED: CALCIUM GLUCONATE 10% 2,000 MG in DEXTROSE 5% 50 ML IV ONE (21:45)
[2022-03-21] MEDS: ONDANSETRON INJ 2 MG/ML 2 ML VIAL IV PRN (22:23)
[2022-03-21] MEDS ORDERED: TRANEXAMIC ACID / 0.7% NACL 1,000 MG/100 ML BAG IV SCH (22:30)
[2022-03-22] MEDS: VANCOMYCIN HCL 1,250 MG in SODIUM CHLORIDE 0.9% 250 ML IV SCH ×2 (02:50→15:25)
[2022-03-22] MEDS: PHENYLEPHRINE HCL 20 MG in DEXTROSE 5% 500 ML IV SCH ×6 (03:20→17:22)
[2022-03-22] MEDS: ACETAMINOPHEN 500 MG TAB PO SCH ×3 (05:47→21:30)
[2022-03-22] MEDS: ceFAZolin 2000MG 2,000 MG/15 ML SYR IV SCH (05:47)
[2022-03-22 05:54] LABS: Hematocrit (blood only) 25.4 % (40.1-51.0); Hemoglobin 8.6 g/dl (14.0-18.0); Mean Corpuscular Hemoglobin 30.9 pg (25.0-34.0); Mean Corpuscular Hgb Conc 33.9 g/dL (32.0-36.0); Mean Corpuscular Volume 91.4 fL (80.0-100.0); Platelet Count 161 K/uL (130-400); RDW Coefficient of Variation 13.7 % (11.5-14.5); RDW Standard Deviation 45.1 fL (36.4-46.3); Red Blood Count 2.78 M/uL (4.63-6.08); White Blood Count 11.93 K/ul (4.8-10.8)
[2022-03-22 06:04] LABS: Albumin Globulin Ratio 1.5 (0.9-2); Albumin Level 2.9 gm/dl (3.4-5.0); BUN Creatinine Ratio 18.2 (10-20); Bilirubin,Total 0.8 mg/dl (0.2-1.0); Calcium 7.9 mg/dl (8.5-10.1); Creatinine Clr Calc Pharmacy 90.4 ml/min; Est GFR (Non-African American) 74.2 ml/min; Potassium 4.4 mmol/L (3.5-5.1); Total Protein 4.9 gm/dl (6.0-8.3)
[2022-03-22] MEDS ORDERED: SODIUM CHLORIDE 0.9% 250 ML IV PRN (06:08)
[2022-03-22] MEDS ORDERED: dexAMETHasone 10 MG in SYRINGE 0 ML IV SCH (08:00)
[2022-03-22] MEDS: DOCUSATE SODIUM 100 MG CAP PO SCH ×2 (10:20→21:29)
[2022-03-22] MEDS: ASPIRIN 81 MG ECTAB PO SCH (10:20)
[2022-03-22] MEDS: MULTIVITAMIN TAB PO SCH (10:20)
[2022-03-22] MEDS: ASCORBIC ACID 500 MG TAB PO SCH ×2 (10:20→17:23)
--- NOTE | 2022-03-22 12:32 | Pharmacy Report ---
Pharmacy PK ABX Note - Date of Service March 22, 2022 - Assessment and Plan Assessment 77 year old M receiving Vancomycin and Cefazolin for treatment of possible prosthetic joint infection. * B/l knee replacements ~10 years ago. Worsening pain required TKA revision yesterday. * OR cultures pending. Renal fxn stable. White count improving. Lactate was elevated but trending down. Procalcitonin negative. MRSA swab negative. * Recommended d/c of Cefazolin and broadening gram negative coverage to Ceftriaxone today. Plan Vancomycin * Loading dose: 2000 mg IV x 1 * Maintenance dose: 1250 mg IV every 12 hours * Regimen is predicted to achieve target AUC/MELISA of 400-600 mg/L.hr * Random level ordered for: 03/23/22 at 0800. Pharmacy will continue to follow and will adjust dose/frequency as necessary. Thank you. Pharmacy has transitioned to AUC monitoring for vancomycin. AUC/MELISA is the preferred PK/PD target and is associated with decreased risk of nephrotoxicity compared to traditional trough targets.
--- NOTE | 2022-03-22 12:36 | Critical Care Progress Note ---
Date of Service March 22, 2022 Assessment & Plan (1) Postoperative hypotension: (2) Anemia: (3) Anxiety: (4) HLD (hyperlipidemia): Plan Reason Critically Ill: 77 YOM POD #0 from left TKA revision secondary to painful joint with possible infection versus aseptic loosening. Patient remained hypotensive in PACU following operative case. EBL 1000ml- resuscitated introperatively with 2liters crystalloid and 500ml of albumin. Required phenylephedrine infusion and ephedrine boluses (50mg) through the case. Patient was initiated with PRBC transfusion by hospitalist service and as he remained hypotension was transferred to ICU. Neuro: Acute pain postoperative/surigical CAM ICU: NEGATIVE Awake and alert following anesthesia No acute needs Continue with Tylenol, Oxycodone, and Hydromorphone Cardiac - Hypotension, Shock -Hemorrhagic shock resolving with blood products. Continue to wean pressors. Maintain MAP above 65. Respiratory - NO acute needs GI - No acute needs PPI RENAL/LYTES - electrolyte protocol -Replace per protocol - BPH - Continue with Puckett catheter while on pressors - Hold Flomax until Hypotension resolved ENDO - NO acute needs - hyperglycemic protocol goal <180mg/dl HEME - Acute on chronic anemia - At this time most consistent with acute blood loss anemia/hypotension -Status post 2 units packed RBCs. Recheck CBC now. -Discontinue aspirin at this time. ID -left knee cultures pending. Continue with Vancomycin- low threshold to broaden out coverage. Discontinue Ancef afebrile- follow lactate, organ dysfunction and pressor requirements wound cultures from today with WBC and no organisms LINES/IV ACCESS - PIV, Puckett Continue use of these lines DVT PROPHYLAXIS -SCDS DISPO - ICU while on vasopressors I have personally spent 37 minutes of critical care time in the direct management of this patient. This is a life/limb threatening event. This includes time spent evaluating patient, direct bedside care, chart review, placing orders, interpretation of diagnostic studies, discussion with consultants, patient, and family members, as well as other required patient management activities. This time is exclusive of all separately billable procedures, and separate from and in addition to any other critical care service time. Thank you for allowing us to participate in the care of this patient. Please refer to my attending physician's documentation for any further recommendations. Admission and Anticipated Discharge Date Admission Date: March 21, 2022 Subjective Patient seen and examined. Denies any complaints. Currently on low-dose phenylephrine via peripheral IV. He is receiving 1 unit of blood at the time of examination. He denies any chest pain, shortness of breath or dizziness. Review of Systems Review of Systems: All systems reviewed & are unremarkable except as noted in HPI & below Physical Exam Physical Exam: PHYSICAL EXAM: General: awake, alert, no apparent distress Head: Normocephalic, atraumatic ENT: PERRLA, EOMI, no pharyngeal exudate, mucous membranes dry Neuro: AAO x 3, speech clear and appropriate, strength intact bilaterally 5/5, sensation intact and equal all extremities and dermatomes, no pronator drift Chest: equal rise and fall of the chest, no accessory muscle use, no heaves or thrills, Clear to auscultation, on room air, Cardiac: Regular rate and rhythm, telemetry reviewed- NSR with PVC, skin warm dry, cap refill <3 seconds, peripheral pulses +2 no JVD, no murmur, +1 bilateral lower extremity edema GI: NABS x 4 quadrants, soft, nontender to palpation, no rebound, guarding or tenderness : voiding into puckett catheter MSK: Left knee wrapped and with JEREMIAH. leg is soft throughout, no drain, peripheral pulses 2+, sensation improving following local Psych: Normal mood and affect Skin: no rash or erythema Results & Data Results & Data ([facility]) Vital Signs (Past 12 Hours) Vital Signs Temp Pulse Resp BP Pulse Ox 03/22/22 09:45 37 C 73 16 110/66 98 03/22/22 08:45 36.8 C 69 16 115/69 98 03/22/22 08:15 36.8 C 73 18 87/54 L 95 03/22/22 08:00 36.8 C 77 14 96/60 L 97 03/22/22 07:49 36.8 C 03/22/22 07:42 36.8 C 77 16 98/61 L 96 03/22/22 07:10 68 03/22/22 06:30 68 17 96 03/22/22 06:16 87 15 97 03/22/22 06:16 92/59 L 03/22/22 06:15 81 16 96 03/22/22 06:00 60 17 97 03/22/22 06:00 111/67 03/22/22 05:45 63 15 97 03/22/22 05:45 112/68 03/22/22 05:30 60 5 L 95 03/22/22 05:30 105/67 03/22/22 05:15 59 L 5 L 97 03/22/22 05:15 108/66 03/22/22 05:00 62 7 L 96 03/22/22 05:00 106/66 03/22/22 04:45 61 6 L 96 03/22/22 04:45 111/65 03/22/22 04:30 62 11 L 98 03/22/22 04:30 105/65 03/22/22 04:15 59 L 0 L 98 03/22/22 04:15 106/64 03/22/22 04:00 63 6 L 98 03/22/22 04:00 114/64 03/22/22 03:45 59 L 11 L 97 03/22/22 03:45 96/54 L 03/22/22 03:30 58 L 17 98 03/22/22 03:30 97/52 L 03/22/22 03:21 89/52 L 03/22/22 03:21 64 16 98 03/22/22 03:18 87/48 L 03/22/22 03:18 68 13 100 03/22/22 03:15 64 7 L 97 03/22/22 03:15 97/48 L 03/22/22 03:00 68 9 L 98 03/22/22 03:00 108/65 03/22/22 02:45 68 19 97 03/22/22 02:45 105/66 03/22/22 02:30 68 19 95 03/22/22 02:30 106/65 03/22/22 02:15 67 20 98 03/22/22 02:15 115/65 03/22/22 02:00 66 19 97 03/22/22 02:00 105/62 03/22/22 01:45 66 20 98 03/22/22 01:45 110/62 03/22/22 01:30 69 15 98 03/22/22 01:30 104/61 03/22/22 01:15 67 19 97 03/22/22 01:15 106/60 03/22/22 01:00 68 17 98 03/22/22 01:00 105/66 03/22/22 04:00 36.7 C 03/22/22 00:15 68 20 96 03/22/22 00:15 107/67 03/22/22 00:00 67 21 96 03/22/22 00:00 107/67 03/21/22 23:45 67 20 96 03/21/22 23:45 103/67 03/22/22 00:00 68 Coding Level of Care Code Critical Care 1st 30-74 mins Diagnoses Postoperative hypotension I95.81 Anemia D64.9 Anxiety F41.9 HLD (hyperlipidemia) E78.5 Time Spent (min) 37
--- NOTE | 2022-03-22 12:37 | Anesthesiology Progress Note ---
Date of Service March 22, 2022 Anesthesia Post Procedure Vital Signs Vital Signs: Temp Pulse Pulse Resp BP BP Pulse Ox 03/22/22 10:05 78 16 98 03/22/22 09:00 69 18 97 03/22/22 09:00 119/65 03/22/22 08:30 64 16 97 03/22/22 08:30 119/71 03/22/22 08:15 87/54 L 03/22/22 08:15 78 17 97 03/22/22 08:00 74 21 97 03/22/22 08:00 96/60 L 03/22/22 07:45 88/55 L 03/22/22 07:45 79 22 95 03/22/22 07:35 79 22 98 03/22/22 07:35 95/61 L 03/22/22 07:32 82 21 98 03/22/22 07:32 49/38 L 03/22/22 07:30 79 20 98 03/22/22 07:15 100/64 03/22/22 07:15 71 18 96 03/22/22 07:00 72 19 96 03/22/22 07:00 109/65 03/22/22 06:46 84 14 97 03/22/22 06:46 84/56 L 03/22/22 10:30 37 C 77 16 108/68 98 03/22/22 09:45 37 C 73 16 110/66 98 03/22/22 08:45 36.8 C 69 16 115/69 98 03/22/22 08:15 36.8 C 73 18 87/54 L 95 03/22/22 08:00 36.8 C 77 14 96/60 L 97 03/22/22 07:49 36.8 C 03/22/22 07:42 36.8 C 77 16 98/61 L 96 03/22/22 07:10 68 03/22/22 06:30 68 17 96 03/22/22 06:16 87 15 97 03/22/22 06:16 92/59 L 03/22/22 06:15 81 16 96 03/22/22 06:00 60 17 97 03/22/22 06:00 111/67 03/22/22 05:45 63 15 97 03/22/22 05:45 112/68 03/22/22 05:30 60 5 L 95 03/22/22 05:30 105/67 03/22/22 05:15 59 L 5 L 97 03/22/22 05:15 108/66 03/22/22 05:00 62 7 L 96 03/22/22 05:00 106/66 03/22/22 04:45 61 6 L 96 03/22/22 04:45 111/65 03/22/22 04:30 62 11 L 98 03/22/22 04:30 105/65 03/22/22 04:15 59 L 0 L 98 03/22/22 04:15 106/64 03/22/22 04:00 63 6 L 98 03/22/22 04:00 114/64 03/22/22 03:45 59 L 11 L 97 03/22/22 03:45 96/54 L 03/22/22 03:30 58 L 17 98 03/22/22 03:30 97/52 L 03/22/22 03:21 89/52 L 03/22/22 03:21 64 16 98 03/22/22 03:18 87/48 L 03/22/22 03:18 68 13 100 03/22/22 03:15 64 7 L 97 03/22/22 03:15 97/48 L 03/22/22 03:00 68 9 L 98 03/22/22 03:00 108/65 03/22/22 02:45 68 19 97 03/22/22 02:45 105/66 03/22/22 02:30 68 19 95 03/22/22 02:30 106/65 03/22/22 02:15 67 20 98 03/22/22 02:15 115/65 03/22/22 02:00 66 19 97 03/22/22 02:00 105/62 03/22/22 01:45 66 20 98 03/22/22 01:45 110/62 03/22/22 01:30 69 15 98 03/22/22 01:30 104/61 03/22/22 01:15 67 19 97 03/22/22 01:15 106/60 03/22/22 01:00 68 17 98 03/22/22 01:00 105/66 03/22/22 04:00 36.7 C 03/22/22 00:15 68 20 96 03/22/22 00:15 107/67 03/22/22 00:00 67 21 96 03/22/22 00:00 107/67 03/21/22 23:45 67 20 96 03/21/22 23:45 103/67 03/21/22 23:30 69 20 96 03/21/22 23:30 110/69 03/21/22 23:15 69 20 96 03/21/22 23:15 100/67 03/21/22 23:00 67 10 L 98 03/21/22 23:00 107/65 03/21/22 22:45 69 17 97 03/21/22 22:45 111/65 03/21/22 22:30 66 16 98 03/21/22 22:30 104/66 03/21/22 22:24 105/62 03/21/22 22:24 68 13 97 03/21/22 22:15 71 16 96 03/21/22 22:15 98/58 L 03/21/22 22:00 75 13 99 03/21/22 22:00 95/60 L 03/21/22 21:46 74 15 100 03/21/22 21:46 91/61 L 03/21/22 21:45 73 9 L 100 03/21/22 21:30 64 14 100 03/21/22 21:30 122/68 03/21/22 21:15 73 14 100 03/21/22 21:15 97/61 L 03/21/22 21:00 73 10 L 100 03/21/22 21:00 93/63 L 03/22/22 00:00 68 03/21/22 21:00 71 03/21/22 22:41 36.6 C 03/21/22 21:41 36.7 C 03/21/22 20:41 36.8 C 03/21/22 20:11 36.6 C 03/21/22 20:45 74 16 100 03/21/22 20:45 99/64 L 03/21/22 20:42 74 18 100 03/21/22 20:42 107/67 03/21/22 21:30 36.7 C 72 14 91/61 L 100 03/21/22 20:30 36.6 C 74 15 80/55 L 100 03/21/22 19:30 36.6 C 71 15 70/48 L 100 03/21/22 20:00 36.6 C 03/21/22 19:44 36.6 C 81 12 83/47 L 100 03/21/22 19:20 36.3 C L 77 16 84/58 L 100 03/21/22 19:15 36.3 C L 80 20 84/59 L 100 03/21/22 19:00 36.5 C 79 13 79/55 L 100 03/21/22 18:45 36.5 C 76 13 86/69 L 100 03/21/22 18:50 77 13 86/59 L 99 03/21/22 18:20 81 12 82/59 L 100 03/21/22 18:00 79 14 83/53 L 100 03/21/22 17:55 76 14 85/55 L 99 03/21/22 17:50 83 17 75/54 L 100 03/21/22 18:10 79 21 85/56 L 100 03/21/22 17:45 76 13 83/61 L 99 03/21/22 17:40 79 14 89/64 L 99 03/21/22 17:35 79 16 78/55 L 100 03/21/22 17:30 84 22 79/55 L 98 03/21/22 17:25 83/55 L 03/21/22 17:20 80 15 79/53 L 99 03/21/22 17:15 80 16 83/55 L 97 03/21/22 17:10 36.4 C L 82 19 79/51 L 100 03/21/22 17:05 78 18 81/57 L 100 03/21/22 17:00 80 14 85/58 L 100 03/21/22 16:55 79 18 71/43 L 100 03/21/22 16:50 77 18 83/61 L 100 03/21/22 16:40 86 16 77/50 L 100 03/21/22 16:33 36.3 C L 85 21 85/52 L 100 O2 Del Method O2 Flow Rate 03/22/22 10:05 03/22/22 09:00 03/22/22 09:00 03/22/22 08:30 03/22/22 08:30 03/22/22 08:15 03/22/22 08:15 03/22/22 08:00 03/22/22 08:00 03/22/22 07:45 03/22/22 07:45 03/22/22 07:35 03/22/22 07:35 03/22/22 07:32 03/22/22 07:32 03/22/22 07:30 03/22/22 07:15 03/22/22 07:15 03/22/22 07:00 03/22/22 07:00 03/22/22 06:46 03/22/22 06:46 03/22/22 10:30 03/22/22 09:45 03/22/22 08:45 03/22/22 08:15 03/22/22 08:00 03/22/22 07:49 03/22/22 07:42 03/22/22 07:10 03/22/22 06:30 03/22/22 06:16 03/22/22 06:16 03/22/22 06:15 03/22/22 06:00 03/22/22 06:00 03/22/22 05:45 03/22/22 05:45 03/22/22 05:30 03/22/22 05:30 03/22/22 05:15 03/22/22 05:15 03/22/22 05:00 03/22/22 05:00 03/22/22 04:45 03/22/22 04:45 03/22/22 04:30 03/22/22 04:30 03/22/22 04:15 03/22/22 04:15 03/22/22 04:00 03/22/22 04:00 03/22/22 03:45 03/22/22 03:45 03/22/22 03:30 03/22/22 03:30 03/22/22 03:21 03/22/22 03:21 03/22/22 03:18 03/22/22 03:18 03/22/22 03:15 03/22/22 03:15 03/22/22 03:00 03/22/22 03:00 03/22/22 02:45 03/22/22 02:45 03/22/22 02:30 03/22/22 02:30 03/22/22 02:15 03/22/22 02:15 03/22/22 02:00 03/22/22 02:00 03/22/22 01:45 03/22/22 01:45 03/22/22 01:30 03/22/22 01:30 03/22/22 01:15 03/22/22 01:15 03/22/22 01:00 03/22/22 01:00 03/22/22 04:00 03/22/22 00:15 03/22/22 00:15 03/22/22 00:00 03/22/22 00:00 03/21/22 23:45 03/21/22 23:45 03/21/22 23:30 03/21/22 23:30 03/21/22 23:15 03/21/22 23:15 03/21/22 23:00 03/21/22 23:00 03/21/22 22:45 03/21/22 22:45 03/21/22 22:30 03/21/22 22:30 03/21/22 22:24 03/21/22 22:24 03/21/22 22:15 03/21/22 22:15 03/21/22 22:00 03/21/22 22:00 03/21/22 21:46 03/21/22 21:46 03/21/22 21:45 03/21/22 21:30 03/21/22 21:30 03/21/22 21:15 03/21/22 21:15 03/21/22 21:00 03/21/22 21:00 03/22/22 00:00 03/21/22 21:00 03/21/22 22:41 03/21/22 21:41 03/21/22 20:41 03/21/22 20:11 03/21/22 20:45 03/21/22 20:45 03/21/22 20:42 03/21/22 20:42 03/21/22 21:30 03/21/22 20:30 03/21/22 19:30 03/21/22 20:00 03/21/22 19:44 Room Air 03/21/22 19:20 Room Air 03/21/22 19:15 03/21/22 19:00 03/21/22 18:45 03/21/22 18:50 Room Air 03/21/22 18:20 Room Air 03/21/22 18:00 Room Air 03/21/22 17:55 Room Air 03/21/22 17:50 Room Air 03/21/22 18:10 Room Air 03/21/22 17:45 Room Air 03/21/22 17:40 Room Air 03/21/22 17:35 Room Air 03/21/22 17:30 Room Air 03/21/22 17:25 03/21/22 17:20 Room Air 03/21/22 17:15 Room Air 03/21/22 17:10 Room Air 03/21/22 17:05 Nasal Cannula 2 03/21/22 17:00 Nasal Cannula 2 03/21/22 16:55 Nasal Cannula 2 03/21/22 16:50 Oxymask 10 03/21/22 16:40 Oxymask 10 03/21/22 16:33 Oxymask 10 Transfer of Care Handoff Completed per policy Notes Mental Status: alert / awake / arousable Patient Amnestic to Procedure: Yes Nausea / Vomiting: adequately controlled Pain: adequately controlled Airway Patency, RR, SpO2: stable & adequate BP & HR: stable & adequate and see Notes below Hydration State: stable & adequate Neuraxial Anesthesia: was administered and sensory block resolved Anesthetic Complications: no major complications apparent and Pt Satisfied with anesthetic care Notes: The patient is POD #1 s/p left total knee revision. He had a spinal anesthetic with left adductor canal block as the anesthetic. He was comfortable throughout the procedure and into PACU. However, he was noted to be hypotensive in the OR and into the PACU due to a large amount of blood loss from the procedure. The patient was given several liters of crystalloid as well as albumin in the OR. His hgb dropped from 12.5 preoperatively to 9.[address] Riley did not decide to transfuse at that time but signed the case over to the medicine team and the patient was placed in the ICU for monitoring. The patient's next hgb was 8.9 so he was transfused one unit PRBC. Overnight his hgb went up to 9.2 but then dropped back down to 8.6 this AM so the patient was transfused a second unit of PRBC this morning. He has been awake and comfortable throughout the perioperative period. He was slightly hypotensive this morning but his BP is now 108/60. His other vital signs have been stable throughout. The patient was sitting in his bed eating lunch. He feels well and is looking forward to rehabbing his knee.
[2022-03-22 13:19] LABS: Hematocrit (blood only) 27.2 % (40.1-51.0); Hemoglobin 9.4 g/dl (14.0-18.0); Mean Corpuscular Hemoglobin 31.1 pg (25.0-34.0); Mean Corpuscular Hgb Conc 34.6 g/dL (32.0-36.0); Mean Corpuscular Volume 90.1 fL (80.0-100.0); Mean Platelet Volume 9.1 fL (9.4-12.4); Platelet Count 151 K/uL (130-400); RDW Standard Deviation 46.2 fL (36.4-46.3); Red Blood Count 3.02 M/uL (4.63-6.08); White Blood Count 11.01 K/ul (4.8-10.8)
--- NOTE | 2022-03-22 14:11 | Electrocardiogram Report ---
Test Reason : Blood Pressure : / mmHG Vent. Rate : 082 BPM Atrial Rate : 082 BPM P-R Int : 162 ms QRS Dur : 088 ms QT Int : 382 ms P-R-T Axes : 005 -16 -16 degrees QTc Int : 446 ms Sinus rhythm with occasional Premature ventricular complexes Nonspecific T wave abnormality Abnormal ECG When compared with ECG of 14-MAR-2022 14:02, Premature ventricular complexes are now Present Nonspecific T wave abnormality, worse in Inferior leads Confirmed by Jericho Miller ([id number]) on 03/22/2022 11:18:35 AM Referred By: Boubacar Gaona Confirmed By:Carlos Miller
[2022-03-22] MEDS: oxyCODONE HCL IR 5 MG TAB (IMMEDIATE RELEASE) PO PRN ×2 (17:27→23:41)
--- NOTE | 2022-03-22 17:56 | Progress Notes ---
SUBJECTIVE: A 77-year-old gentleman postoperative day 1 from a left total knee revision. This is co mplicated by quite a bit of blood loss and hypotension postop. He is in the ICU for monitoring. He is doing pretty well. He has got some blood. He is relatively asymptomatic. His pain is controlled . No chest pain or shortness of breath. Not feeling dizzy or lightheaded. OBJECTIVE: VITAL SIGNS: Temperature 37.0. Vital signs are stable. GENERAL: He is a pleasant middle-aged male. He is sitting up in bed and looks comfortable. EXTREMITIES: Examination of the left leg reveals the dressing to be clean, dry and intact. His leg is well aligned. There is no bloody drainage. He can dorsiflex and plantarflex his foot appropriate ly. He has got brisk refill with a good distal pulse. LABORATORY DATA: Hemoglobin today was 8.6. Hematocrit 25.4. White cell count 11.93. Electrolytes are stable. Lactate just slightly elevated. ASSESSMENT: A 77-year-old gentleman, postoperative day #1 from a complex left knee revision with sig nificant blood loss. Clinically, he is doing well. Relatively asymptomatic. He has been hypotensiv e, but relatively asymptomatic. He has got some blood. PLAN: 1. DVT prophylaxis includes thigh-high TEDs, SCDs, and aspirin twice a day. 2. PT/OT. He can fully weightbear and tolerate it on this left leg. 3. Pain control, doing okay with current pain regimen. 4. Anemia. I would recommend we hold off on too much blood transfusion as it has been associated wi th increased risk of infection. If he is symptomatic, we can transfuse him as needed or if his hemog lobin probably goes below 8. 5. Medical management as per the medicine service. 6. Disposition: He is planned to be discharged to home. He is probably going to have several day h ospital stay and what to follow his blood pressure and his hemoglobin. Any orthopedic questions can be directed to me at [phone]. Job ID: [id number]
--- NOTE | 2022-03-22 18:02 | Electrocardiogram Report ---
Test Reason : Blood Pressure : / mmHG Vent. Rate : 062 BPM Atrial Rate : 062 BPM P-R Int : 186 ms QRS Dur : 104 ms QT Int : 422 ms P-R-T Axes : 006 -22 127 degrees QTc Int : 428 ms Sinus rhythm with occasional Premature ventricular complexes Incomplete right bundle branch block T wave abnormality, consider lateral ischemia Abnormal ECG When compared with ECG of 21-MAR-2022 18:09, T wave inversion now evident in Anterior leads Confirmed by Jericho Miller ([id number]) on 03/22/2022 6:02:12 PM Referred By: Boubacar Gaona Confirmed By:Carlos Miller
--- NOTE | 2022-03-22 18:25 | Hospitalist Progress Note ---
Date of Service March 22, 2022 Assessment & Plan (1) Postoperative hypotension: Plan: Improving, patient received blood products (2) Anemia: (3) Anxiety: (4) HLD (hyperlipidemia): Plan POD #0 from left TKA revision 2/2 possible infection versus others, remains hypotensive possibly secondary to significant volume loss due to bleeding Required pressors through the case s/p multiple transfusion Hypotension, Shock due to volume loss and bleeding -currently on pressors ,s/p multiple blood transfusion - Hold toradol - Hold flomax - TXA ordered per primary service - Acute on chronic anemia -2/2 above -knees swelling with Leukocytosis on Vancomycin DVT PROPHYLAXIS -SCDS, ASA 81mg BID Admission and Anticipated Discharge Date Admission Date: March 22, 2022 Subjective Status post left total knee revision complicated with iatrogenic anemia and hypotension Review of Systems Review of Systems: REVIEW OF SYSTEMS: Constitutional: No fever, sweats or chills Eyes: No diplopia, no worsening or blurred vision ENT: normal hearing, no trouble swallowing Respiratory: No cough, sputum, dyspnea at rest or on exertion Cardiovascular: No chest pain, tightness or palpitations Abdomen: No pain, nausea, vomiting, diarrhea or constipation Musculoskeletal: (+) bilateral knee joint pain, lower leg swelling Neurologic: No weakness, numbness/tingling, or balance problems Psychiatric: No anxiety or depression Skin: No rash or itch Physical Exam Physical Exam: PHYSICAL EXAM: General: awake, alert, no apparent distress Head: Normocephalic, atraumatic ENT: PERRLA, EOMI, no pharyngeal exudate, mucous membranes dry Neuro: AAO x 3, speech clear and appropriate, strength intact bilaterally 5/5, sensation intact and equal all extremities and dermatomes, no pronator drift Chest: equal rise and fall of the chest, no accessory muscle use, no heaves or thrills, Clear to auscultation, on room air, Cardiac: Regular rate and rhythm, telemetry reviewed- NSR with PVC, skin warm dry, cap refill <3 seconds, peripheral pulses +2 no JVD, no murmur, +1 bilateral lower extremity edema GI: NABS x 4 quadrants, soft, nontender to palpation, no rebound, guarding or tenderness : voiding into puckett catheter MSK: Left knee wrapped and with JEREMIAH. leg is soft throughout, no drain, peripheral pulses 2+, sensation improving following local Psych: Normal mood and affect Skin: no rash or erythema Constitutional: + obese; no acute distress ENMT: Mouth: no TMJ abnormality Mallampati Class: II Neck: normal visual inspection and + facial hair; neck extension not limited Respiratory: normal respiratory effort; no respiratory distress Auscultation: lungs clear to auscultation bilaterally; no wheezes Cardiovascular: Rate/Rhythm: regular rate and regular rhythm Heart Sounds: no murmur Vessels: no carotid bruit Musculoskeletal: Spine: normal cervical ROM and no pain with cervical ROM Extremities: extremities normal to inspection Neurologic: moves all extremities Psychiatric: Orientation: alert and oriented x 3 Results & Data Results & Data ([facility]) Vital Signs (Past 12 Hours) Vital Signs Temp Pulse Resp BP Pulse Ox 03/22/22 18:00 92 H 21 93 03/22/22 18:00 103/63 03/22/22 17:45 92 H 21 94 03/22/22 17:45 106/66 03/22/22 17:30 100 H 18 93 03/22/22 17:30 99/62 L 03/22/22 17:19 97 H 21 96 03/22/22 17:19 91/58 L 03/22/22 17:16 101 H 16 93 03/22/22 17:16 79/67 L 03/22/22 17:15 98 H 20 93 03/22/22 17:00 99 H 14 92 03/22/22 17:00 108/63 03/22/22 16:46 91/73 L 03/22/22 16:46 98 H 22 94 03/22/22 16:45 97 H 20 93 03/22/22 16:30 86 18 92 03/22/22 16:15 87 17 93 03/22/22 16:15 96/68 L 03/22/22 16:00 87 30 H 94 03/22/22 16:00 113/70 03/22/22 15:45 83 21 94 03/22/22 15:45 116/72 03/22/22 16:00 75 03/22/22 15:29 37 C 03/22/22 15:30 75 95 03/22/22 15:30 122/74 03/22/22 15:15 76 18 95 03/22/22 15:15 120/72 03/22/22 15:00 75 17 94 03/22/22 15:00 122/72 03/22/22 14:45 74 16 94 03/22/22 14:45 115/74 03/22/22 14:30 80 20 92 03/22/22 14:30 104/86 03/22/22 14:16 88 18 03/22/22 14:16 104/65 03/22/22 14:00 104 H 17 97 03/22/22 14:00 113/75 03/22/22 13:57 103/74 03/22/22 13:57 98 H 23 97 03/22/22 13:56 92/70 L 03/22/22 13:56 107 H 18 96 03/22/22 13:45 82 19 95 03/22/22 13:45 114/71 03/22/22 13:30 82 21 95 03/22/22 13:30 114/72 03/22/22 13:15 84 18 95 03/22/22 13:15 112/66 03/22/22 13:00 87 21 94 03/22/22 13:00 93/66 L 03/22/22 12:45 83 19 95 03/22/22 12:45 106/68 03/22/22 12:30 95 H 18 93 03/22/22 12:30 85/62 L 03/22/22 12:15 90 19 96 03/22/22 12:15 110/70 03/22/22 12:00 88 19 96 03/22/22 12:00 103/67 03/22/22 11:45 93 H 16 96 03/22/22 11:30 82 21 96 03/22/22 11:15 82 15 98 03/22/22 11:15 105/67 03/22/22 11:01 100/62 03/22/22 11:01 82 30 H 96 03/22/22 11:00 79 24 96 03/22/22 10:45 75 22 96 03/22/22 10:45 101/63 03/22/22 10:31 74 16 96 03/22/22 10:30 108/68 03/22/22 10:28 78 17 97 03/22/22 10:15 101/65 03/22/22 10:15 75 23 96 03/22/22 10:05 78 16 98 03/22/22 09:00 69 18 97 03/22/22 09:00 119/65 03/22/22 08:30 64 16 97 03/22/22 08:30 119/71 03/22/22 08:15 87/54 L 03/22/22 08:15 78 17 97 03/22/22 08:00 74 21 97 03/22/22 08:00 96/60 L 03/22/22 07:45 88/55 L 03/22/22 07:45 79 22 95 03/22/22 07:35 79 22 98 03/22/22 07:35 95/61 L 03/22/22 07:32 82 21 98 03/22/22 07:32 49/38 L 03/22/22 07:30 79 20 98 03/22/22 07:15 100/64 03/22/22 07:15 71 18 96 03/22/22 07:00 72 19 96 03/22/22 07:00 109/65 03/22/22 06:46 84 14 97 03/22/22 06:46 84/56 L 03/22/22 10:30 37 C 77 16 108/68 98 03/22/22 09:45 37 C 73 16 110/66 98 03/22/22 08:45 36.8 C 69 16 115/69 98 03/22/22 08:15 36.8 C 73 18 87/54 L 95 03/22/22 08:00 36.8 C 77 14 96/60 L 97 03/22/22 07:49 36.8 C 03/22/22 07:42 36.8 C 77 16 98/61 L 96 03/22/22 07:10 68 03/22/22 06:30 68 17 96 PG Care Time/CCT Total # of Minutes Spent Total Time Spent with Patient: Total time spent is greater than 50% in coordination of care (as documented) at patient's floor/unit and/or counseling patient: Coding Level of Care Code 13865 SUB INP/OBS CARE 2/35MIN Diagnoses Postoperative hypotension I95.81 Anemia D64.9 Anxiety F41.9 HLD (hyperlipidemia) E78.5
[2022-03-22] MEDS: ESCITALOPRAM OXALATE 10 MG TAB PO SCH (21:29)
[2022-03-22] MEDS: SENNA 8.6 MG TAB PO SCH (21:30)
[2022-03-22] MEDS: ROSUVASTATIN CALCIUM 10 MG TAB PO SCH (21:31)
[2022-03-23] MEDS: VANCOMYCIN HCL 1,250 MG in SODIUM CHLORIDE 0.9% 250 ML IV SCH (04:26)
[2022-03-23 04:27] LABS: BUN Creatinine Ratio 20.7 (10-20); Calcium 8.1 mg/dl (8.5-10.1); Creatinine Clr Calc Pharmacy 109.5 ml/min; Est GFR (African American) 100.3 ml/min; Est GFR (Non-African American) 86.5 ml/min; Potassium 4.5 mmol/L (3.5-5.1)
[2022-03-23 04:50] LABS: Hematocrit (blood only) 25.6 % (42.0-52.0); Hemoglobin 8.8 g/dl (14.0-18.0); Mean Corpuscular Hemoglobin 30.7 pg (25.0-34.0); Mean Corpuscular Hgb Conc 34.4 g/dL (32.0-36.0); Mean Corpuscular Volume 89.2 fL (80.0-100.0); Mean Platelet Volume 9.5 fL (9.4-12.4); Platelet Count 136 K/uL (130-400); RDW Coefficient of Variation 14.1 % (11.5-14.5); RDW Standard Deviation 45.7 fL (36.4-46.3); Red Blood Count 2.87 M/uL (4.70-6.10); White Blood Count 12.91 K/ul (4.8-10.8)
[2022-03-23] MEDS: ACETAMINOPHEN 500 MG TAB PO SCH ×3 (06:07→21:30)
[2022-03-23] MEDS: DOCUSATE SODIUM 100 MG CAP PO SCH ×2 (07:58→21:27)
[2022-03-23] MEDS: ASCORBIC ACID 500 MG TAB PO SCH ×2 (07:58→16:56)
[2022-03-23] MEDS: MULTIVITAMIN TAB PO SCH (07:58)
[2022-03-23 09:03] LABS: Creatinine Clr Calc Pharmacy 114.6 ml/min; Est GFR (African American) 98.8 ml/min; Est GFR (Non-African American) 85.2 ml/min
--- NOTE | 2022-03-23 09:28 | Critical Care Progress Note ---
Date of Service March 23, 2022 Assessment & Plan (1) Postoperative hypotension: (2) Anemia: (3) Anxiety: (4) HLD (hyperlipidemia): Plan Reason Critically Ill: 77 YOM POD #0 from left TKA revision secondary to painful joint with possible infection versus aseptic loosening. Patient remained hypotensive in PACU following operative case. EBL 1000ml- resuscitated introperatively with 2liters crystalloid and 500ml of albumin. Required phenylephedrine infusion and ephedrine boluses (50mg) through the case. Patient was initiated with PRBC transfusion by hospitalist service and as he remained hypotension was transferred to ICU. Neuro: Acute pain postoperative/surigical CAM ICU: NEGATIVE Awake and alert following anesthesia No acute needs Continue with Tylenol, Oxycodone, and Hydromorphone Cardiac - Hypotension, Shock -Hemorrhagic shock resolved with blood products. Vasopressors discontinued. Will give additional bolus of 500 cc normal saline given soft BP. Respiratory - NO acute needs GI - No acute needs PPI RENAL/LYTES - electrolyte protocol -Replace per protocol - BPH - Continue with Puckett catheter while on pressors - Hold Flomax until Hypotension resolved ENDO - NO acute needs - hyperglycemic protocol goal <180mg/dl HEME - Acute on chronic anemia - At this time most consistent with acute blood loss anemia/hypotension -Status post 2 units packed RBCs. Hemoglobin remains low, but no acute needs from her transfusion unless he develops further hypotension. -Discontinue aspirin at this time. ID -left knee cultures negative thus far. Patient without signs of sepsis. Will discontinue vancomycin. LINES/IV ACCESS - PIV, Puckett Continue use of these lines DVT PROPHYLAXIS -SCDS DISPO -transfer out of ICU to PCU. Admission and Anticipated Discharge Date Admission Date: March 22, 2022 Subjective No acute events overnight. BP on the lower side, but has not required vasopressors since yesterday afternoon. Review of Systems Review of Systems: All systems reviewed & are unremarkable except as noted in HPI & below Physical Exam Physical Exam: PHYSICAL EXAM: General: awake, alert, no apparent distress Head: Normocephalic, atraumatic ENT: PERRLA, EOMI, no pharyngeal exudate, mucous membranes dry Neuro: AAO x 3, speech clear and appropriate, strength intact bilaterally 5/5, sensation intact and equal all extremities and dermatomes, no pronator drift Chest: equal rise and fall of the chest, no accessory muscle use, no heaves or thrills, Clear to auscultation, on room air, Cardiac: Regular rate and rhythm, telemetry reviewed- NSR with PVC, skin warm dry, cap refill <3 seconds, peripheral pulses +2 no JVD, no murmur, +1 bilateral lower extremity edema GI: NABS x 4 quadrants, soft, nontender to palpation, no rebound, guarding or tenderness : voiding into puckett catheter MSK: Left knee wrapped and with JEREMIAH. leg is soft throughout, no drain, peripheral pulses 2+, sensation improving following local Psych: Normal mood and affect Skin: no rash or erythema Results & Data Results & Data ([facility]) Vital Signs (Past 12 Hours) Vital Signs Temp Pulse Resp BP Pulse Ox O2 Del Method 03/23/22 09:04 36.8 C 03/23/22 08:00 69 21 106/58 L 94 Room Air 03/23/22 07:00 54 L 15 93/55 L 92 Room Air 03/23/22 06:03 53 L 15 113/66 96 03/23/22 05:00 57 L 17 98/63 L 93 03/23/22 04:34 36.8 C 03/23/22 04:13 103/63 03/23/22 04:00 59 L 13 89/59 L 94 03/23/22 03:00 57 L 15 95/58 L 91 03/23/22 02:05 59 L 14 104/59 L 91 03/23/22 01:00 61 15 105/59 L 93 03/23/22 00:00 66 15 96/61 L 92 Room Air 03/23/22 00:00 65 03/22/22 23:28 36.7 C 03/22/22 23:00 66 15 106/63 91 03/22/22 22:45 72 24 96/59 L 91 03/22/22 21:45 68 16 93/56 L 93 Coding Level of Care Code 65135 SUB INP/OBS CARE 2/35MIN Diagnoses Postoperative hypotension I95.81 Anemia D64.9 Anxiety F41.9 HLD (hyperlipidemia) E78.5
[2022-03-23] MEDS ORDERED: SODIUM CHLORIDE 0.9% 500 ML IV ONE (09:30)
[2022-03-23] MEDS: ONDANSETRON INJ 2 MG/ML 2 ML VIAL IV PRN (09:58)
[2022-03-23] MEDS: oxyCODONE HCL IR 5 MG TAB (IMMEDIATE RELEASE) PO PRN (12:37)
--- NOTE | 2022-03-23 18:09 | Hospitalist Progress Note ---
Date of Service March 23, 2022 Assessment & Plan (1) Postoperative hypotension: Plan: Improving, patient received blood products (2) Anemia: (3) Anxiety: (4) HLD (hyperlipidemia): Plan POD #0 from left TKA revision 2/2 possible infection versus others, remains hypotensive possibly secondary to significant volume loss due to bleeding Required pressors through the case s/p multiple transfusion Hypotension, Shock due to volume loss and bleeding - Off the pressors now,s/p multiple blood transfusion transferred to regular floor - Hold toradol - Hold flomax - TXA ordered per primary service - Acute on chronic anemia -2/2 above -knees swelling with Leukocytosis on Vancomycin DVT PROPHYLAXIS -SCDS, ASA 81mg BID Admission and Anticipated Discharge Date Admission Date: March 22, 2022 Subjective No acute events overnight. BP on the lower side, but has not required vasopressors since yesterday afternoon. Results & Data Results & Data ([facility]) Vital Signs (Past 12 Hours) Vital Signs Temp Pulse Pulse Resp BP BP Pulse Ox 03/23/22 16:04 03/23/22 16:32 65 03/23/22 16:04 36.6 C 63 18 129/73 97 03/23/22 13:00 63 19 115/63 100 03/23/22 12:30 68 17 117/60 100 03/23/22 08:00 03/23/22 12:15 68 22 121/81 97 03/23/22 12:02 65 19 122/83 99 03/23/22 11:50 82 26 H 119/65 03/23/22 11:45 71 23 124/68 95 03/23/22 11:14 70 20 108/71 98 03/23/22 11:27 36.5 C 03/23/22 11:00 66 18 123/66 100 03/23/22 10:56 62 21 115/68 99 03/23/22 10:51 61 19 99/62 L 97 03/23/22 10:43 68 24 110/64 98 03/23/22 10:30 68 22 107/77 98 03/23/22 10:15 66 15 115/63 100 03/23/22 10:05 101/73 03/23/22 10:05 59 L 16 97 03/23/22 10:02 90/52 L 03/23/22 10:02 89 L 03/23/22 10:00 68 L 03/23/22 09:57 108/71 03/23/22 09:57 100 03/23/22 09:50 72/43 L 03/23/22 09:50 98 03/23/22 09:45 73 14 98 03/23/22 09:45 99/61 L 03/23/22 09:43 118/59 L 03/23/22 09:43 72 13 03/23/22 09:30 70 22 98 03/23/22 09:15 67 14 99 03/23/22 09:00 67 16 97/65 L 100 03/23/22 09:04 36.8 C 03/23/22 08:00 69 21 106/58 L 94 03/23/22 07:00 54 L 15 93/55 L 92 O2 Del Method 03/23/22 16:04 Room Air 03/23/22 16:32 03/23/22 16:04 Room Air 03/23/22 13:00 Room Air 03/23/22 12:30 Room Air 03/23/22 08:00 Room Air 03/23/22 12:15 Room Air 03/23/22 12:02 Room Air 03/23/22 11:50 03/23/22 11:45 Room Air 03/23/22 11:14 Room Air 03/23/22 11:27 03/23/22 11:00 03/23/22 10:56 03/23/22 10:51 03/23/22 10:43 03/23/22 10:30 03/23/22 10:15 03/23/22 10:05 03/23/22 10:05 03/23/22 10:02 03/23/22 10:02 03/23/22 10:00 03/23/22 09:57 03/23/22 09:57 03/23/22 09:50 03/23/22 09:50 03/23/22 09:45 03/23/22 09:45 03/23/22 09:43 03/23/22 09:43 03/23/22 09:30 03/23/22 09:15 03/23/22 09:00 Room Air 03/23/22 09:04 03/23/22 08:00 Room Air 03/23/22 07:00 Room Air PG Care Time/CCT Total # of Minutes Spent Total Time Spent with Patient: Total time spent is greater than 50% in coordination of care (as documented) at patient's floor/unit and/or counseling patient: Coding Level of Care Code 49459 SUB INP/OBS CARE 2/35MIN Diagnoses Postoperative hypotension I95.81 Anemia D64.9 Anxiety F41.9 HLD (hyperlipidemia) E78.5
[2022-03-23] MEDS: SENNA 8.6 MG TAB PO SCH (21:27)
[2022-03-23] MEDS ORDERED: HYDROmorphone HCL 2 MG TAB PO STA (21:30)
--- NOTE | 2022-03-23 21:35 | Progress Notes ---
DATE OF SERVICE: 03/23/2022. SUBJECTIVE: A 77-year-old gentleman, postoperative day 2 from a left revision knee arthroplasty. He is doing pretty well. He has received 2 units of blood. He has been relatively asymptomatic. Fair ly anemic with quite a bit of blood loss and had some hypotension postoperatively. This seems to be improved. He is asymptomatic. No chest pain or shortness of breath. He is anxious to get home. OBJECTIVE: VITAL SIGNS: Temperature is 36.7. Vital signs are stable. GENERAL: He is a pleasant middle-aged male. He is sitting up in bed, looks comfortable. EXTREMITIES: Examination of the left leg reveals the incision to be clean, dry and intact. Really n ot much in the way of drainage at all. He can do a straight leg raise. He can dorsiflex and plantar flex his foot appropriately. He is neurologically intact. LABORATORY DATA: Hemoglobin 8.8. Lactate ____. Electrolytes are stable. Culture results are no gr owth to date. ASSESSMENT: A 77-year-old gentleman, 2 days' out from a revision knee arthroplasty with possible und erlying infection. This is essentially a single stage exchange. Cultures are no growth. I do think he has got some degree of infection present. PLAN: 1. DVT prophylaxis includes thigh-high TEDs, SCDs. We will start him back on his aspirin as his hem oglobin has been stable. 2. PT/OT. Weight bear as tolerated. Left total knee protocol. 3. Pain control. Doing okay with current pain regimen. 4. Antibiotics. I am going to put him on cefadroxil and Bactrim postoperatively as an outpatient fo r a couple of months until his sed rate and C-reactive protein parameters come back to normal. 5. Disposition. Plan to discharge to home with home health once medically stable. Job ID: [id number]
[2022-03-24] MEDS: ACETAMINOPHEN 500 MG TAB PO SCH (06:35)
--- NOTE | 2022-03-24 07:29 | Progress Notes ---
DATE OF SERVICE: 03/24/2022. SUBJECTIVE: A 77-year-old gentleman, postoperative day #3 from a revision total knee arthroplasty wi th possible underlying infection. Had quite a bit of blood loss. He has been transfused. Blood pre ssure is a bit low, but much improved now. He is asymptomatic. Pain is controlled. He has been pre tty frustrated as he had a very terrible night as I put another patient in his room, got very little sleep and did not get some of the medicines that he normally takes. OBJECTIVE: VITAL SIGNS: Temperature is 36.5. Blood pressure 144/75. Heart rate 59. GENERAL: Shows a pleasant, elderly male. He is sitting up in bed, a bit frustrated by his situation . EXTREMITIES: Examination of the left leg reveals the dressing and wound to be clean, dry and intact. He can do a straight leg raise. He can dorsiflex and plantarflex his foot appropriately. NEUROLOGIC: He is neurologically intact. LABORATORY DATA: Labs are pending. Culture results -- cultures are no growth to date. ASSESSMENT: A 77-year-old gentleman, postoperative day #3 from a revision knee arthroplasty with lik german some underlying low level infection. This is essentially a 1-stage exchange. Pain is relatively controlled. Cultures are no growth. He is hoping to get home. PLAN: 1. DVT prophylaxis includes thigh-high TEDs, SCDs and back on an aspirin twice a day. 2. PT/OT, he can weightbear as tolerated. 3. Pain control, doing okay with current pain regimen. 4. Antibiotics. We are going to change him to p.o. antibiotics. We will put him on cefadroxil twic e a day as well as Bactrim to cover Methicillin-resistant staph. 5. Disposition: Plan to discharge to home with some home health. Job ID: [id number]
[2022-03-24] MEDS ORDERED: ASPIRIN 81 MG ECTAB PO SCH (09:00)
[2022-03-24 09:41] LABS: Creatinine Clr Calc Pharmacy 109.1 ml/min; Est GFR (African American) 99.3 ml/min; Est GFR (Non-African American) 85.7 ml/min
[2022-03-24] MEDS: MULTIVITAMIN TAB PO SCH (10:01)
[2022-03-24] MEDS: ASCORBIC ACID 500 MG TAB PO SCH (10:05)
[2022-03-24] MEDS: DOCUSATE SODIUM 100 MG CAP PO SCH (10:05)
--- NOTE | 2022-03-24 16:02 | Hospitalist Progress Note ---
Date of Service March 24, 2022 Assessment & Plan (1) Postoperative hypotension: Plan: Resolved with transfusion. (2) Anemia: Plan: Acute blood loss anemia noted postoperatively. He received transfusion. Now stable (3) Anxiety: Plan: Medication management (4) HLD (hyperlipidemia): Plan: Medication management Plan Discharge to home per primary service today, March 24 Admission and Anticipated Discharge Date Admission Date: March 22, 2022 Subjective The patient was seen early this morning before discharge. Review of Systems Review of Systems: Constitutional-no fever or chills ENT-no blurred vision, no double vision, no epistaxis, no sore throat Respiratory-no cough, no wheezing, no shortness of breath Cardiac-no palpitations, no chest pain, no syncope GI-no nausea, vomiting, diarrhea, melena, hematochezia -no urinary retention, no urinary incontinence, no dysuria, no hematuria Musculoskeletal-mild postoperative left knee discomfort as expected Skin-no bruising, no rashes, no pruritus Neuro-no isolated weakness, no paresthesia, no weakness Psych-no depression, no anxiety Physical Exam Physical Exam: General-alert and oriented x3, no fevers, no chills HEENT-head atraumatic and normocephalic, pupils equal and reactive to light, extraocular muscles intact Neck-no lymphadenopathy or thyromegaly, trachea midline Chest-clear to auscultation percussion. No rales wheezing or rhonchi Cardiac-regular rate and rhythm, normal S1 and S2 Abdomen-normal bowel sounds, nontender, no hepatosplenomegaly Extremities-left knee surgical site clean and dry. Limited range of motion postoperatively as expected. Neuro-cranial nerves II through XII intact, motor and sensory function within normal limits, strength symmetrical , no focal deficits Psych-normal affect, normal mood Results & Data Results & Data ([facility]) Vital Signs (Past 12 Hours) Vital Signs Temp Pulse Pulse Pulse Resp BP Pulse Ox 03/24/22 05:59 55 L 03/24/22 11:35 37 C 59 L 65 18 104/65 97 03/24/22 08:00 37 C 65 18 104/65 97 03/24/22 04:05 36.5 C 59 L 20 144/75 H 98 O2 Del Method 03/24/22 05:59 03/24/22 11:35 03/24/22 08:00 Room Air 03/24/22 04:05 Room Air Laboratory Results 03/23/22 03:58 03/24/22 08:19 PG Care Time/CCT Total # of Minutes Spent Total Time Spent with Patient: Total time spent is greater than 50% in coordination of care (as documented) at patient's floor/unit and/or counseling patient: Coding Level of Care Code 77847 SUB INP/OBS CARE 3/50MIN Diagnoses Postoperative hypotension I95.81 Anemia D64.9 Anxiety F41.9 HLD (hyperlipidemia) E78.5
--- NOTE | 2022-03-31 13:42 | Discharge Summary ---
Date of Service March 31, 2022 Discharge Data Consultations 03/21/22 19:50 Consult Cover Stripper Routine 03/21/22 20:11 Consult Hospitalist Routine 03/22/22 14:57 Consult Cover Stripper Routine Procedures Performed Operation Date: 03/21/22 10:40 Actual Procedures p Left Total Knee Arthroplasty Revision(Left) - Boubacar Gaona MD Hospital Course (1) Status post revision of total replacement of left knee: This is a 77 year old patient admitted on 03/21/22 and underwent left total knee revision for possible infection. He had significant blood loss intraoperatively and with continued hypotension post op. He was ransferred to the PACU post op and later to the ICU for further care and management for hypotension. The hospit alist and corporate recruiter were consulted for further management. He was given neosynephrine and transfused 2 units of PRBC's post op. He was given vancomycin for antibiotic prophylaxis and eventually bactrim and cefadroxil. He was also given RENEE stockings, SCDs, and aspirin for DVT prophylaxis. He was eventually transferred from the ICU to the orthopedic floor. By post op day #3 the patient was tolerating a regular diet, pain was reasonably controlled with oral pain medicine, and he was participating in physical therapy. On post op day #3 the patient was discharged home and set up with home health care. He was given printed discharge instructions including prescriptions for extra strength tylenol, aspirin, ketorolac, zofran, senokot, oxycodone, cefadroxil, and bactrim. Continue physical therapy, weight bearing as tolerated. Continue RENEE stockings. Follow up approximately 2 weeks post op or sooner if there are problems or concerns. Coding Level of Care Code None Diagnoses Status post revision of total replacement of left knee Z96.652
== END 2022-03-24 13:00 | disposition home health service (06) | DRG 466 ==
LOC: 1E 08:32 → ASU 08:32 → SUATTDRO 16:35 → 2W 03-23 16:06